=== PATIENT | male | born 1985 | race Caucasian/White ===

== ENCOUNTER 2018-02-13 13:35 | Inpatient (IN) | payer BC ==
[~2018-02-13] VITALS: Ht 195.6 cm; Wt 82.0 kg
[~2018-02-13 13:35] MED LIST: CARI350T29 PO; CLON2TAB12 PO; LIT300 PO; MODA200T35 PO
[2018-02-13 15:30] VITALS: BP 112/58; PULSE 71; RESP 18; Ht 195.6 cm; Wt 82.0 kg
[2018-02-13] MEDS ORDERED: CEPASTAT LOZENGE MT PRN (16:00)
[2018-02-13] MEDS ORDERED: NALOXONE (0.4 MG/ML) INJ IV PRN (16:00)
[2018-02-13] MEDS ORDERED: DIPHENHYDRAMINE 25 MG CAP PO PRN (16:00)
[2018-02-13] MEDS ORDERED: HYDROCODONE/APAP (10/325) TAB PO PRN (16:00)
[2018-02-13] MEDS ORDERED: ONDANSETRON 4 MG INJ IV PRN (16:00)
[2018-02-13] MEDS ORDERED: DIPHENHYDRAMINE 50 MG INJ IV PRN (16:00)
[2018-02-13] MEDS ORDERED: ACETAMINOPHEN 325 MG TAB PO PRN (16:00)
[2018-02-13] MEDS ORDERED: AL HYDROX/MG HYDROX/SIMETH 30 ML CUP PO PRN (16:00)
[2018-02-13] MEDS: HYDROCODONE/APAP (10/325) TAB PO PRN ×2 (16:40→20:55)
[2018-02-13] MEDS: CYCLOBENZAPRINE 10 MG TAB PO PRN (16:42)
[2018-02-13 20:00] VITALS: BP 115/67; PULSE 72; RESP 16
[2018-02-13] MEDS: LITHIUM CARBONATE 300 MG CAP PO SCH (20:54)
[2018-02-13] MEDS: SENNA TAB PO SCH (20:55)
[2018-02-13] MEDS: DOCUSATE SODIUM 100 MG CAP PO SCH (20:55)
[2018-02-13] MEDS: clonAZEPAM 0.5 MG TAB PO PRN (22:06)
[2018-02-14] MEDS: CYCLOBENZAPRINE 10 MG TAB PO PRN ×3 (01:44→16:31)
[2018-02-14 02:00] VITALS: BP 113/63; PULSE 76; RESP 16
[2018-02-14] MEDS: HYDROCODONE/APAP (10/325) TAB PO PRN (07:42)
[2018-02-14 08:00] VITALS: BP 104/58; PULSE 69; RESP 16
[2018-02-14] MEDS: LITHIUM CARBONATE 300 MG CAP PO SCH ×3 (09:31→20:34)
[2018-02-14] MEDS: DOCUSATE SODIUM 100 MG CAP PO SCH ×2 (09:31→21:00)
[2018-02-14] MEDS: MODAFINIL 200 MG TAB PO SCH (09:31)
--- NOTE | 2018-02-14 10:49 | CONS ---
Date/Time of Note Date/Time of Note DATE: 02/14/18 TIME: 10:48 Assessment/Plan Assessment/Plan Assessment/Plan 1. Stable post op lumbar back surg 2. Psych disorder, meds rev and [place] level noted, would not make changes now but on dc will advise pt regarding [place] level so he can rev with his psychiatrist or IM MD Result Diagram: 02/14/18 0706 02/14/18 0706 Results 24hrs Laboratory Tests Test 02/13/18 16:10 02/14/18 07:03 02/14/18 07:06 Urine Color STRAW Urine Clarity CLEAR Urine pH 8.0 Urine Specific [place] 1.003 Urine Ketones NEGATIVE Urine Nitrite NEGATIVE Urine Bilirubin NEGATIVE Urine Urobilinogen NEGATIVE Urine Leukocyte Esterase NEGATIVE Urine Hemoglobin NEGATIVE Urine Glucose NEGATIVE Urine Total Protein NEGATIVE [place] Level 1.5 H White Blood Count 11.4 H Red Blood Count 3.95 L Hemoglobin 11.7 L Hematocrit 35.6 L Mean Corpuscular Volume 90.1 Mean Corpuscular Hemoglobin 29.6 Mean Corpuscular Hemoglobin Concent 32.9 Red Cell Distribution Width 11.8 Platelet Count 136 L Mean Platelet Volume 10.3 Immature Granulocytes % 0.300 Neutrophils % 80.0 H Lymphocytes % 12.2 L Monocytes % 6.2 Eosinophils % 1.0 Basophils % 0.3 Nucleated Red Blood Cells % 0.0 Immature Granulocytes # 0.040 H Neutrophils # 9.2 H Lymphocytes # 1.4 Monocytes # 0.7 Eosinophils # 0.1 Basophils # 0.0 Nucleated Red Blood Cells # 0.0 Sodium Level 136 Potassium Level 4.0 Chloride Level 102 Carbon Dioxide Level 28 Anion Gap 6 Blood Urea Nitrogen 9 Creatinine 0.92 Est Glomerular Filtrat Rate mL/min > 60 Glucose Level 91 Calcium Level 9.9 Total Bilirubin 0.6 Direct Bilirubin 0.00 Indirect Bilirubin 0.6 Aspartate Amino Transf (AST/SGOT) 25 Alanine Aminotransferase (ALT/SGPT) 26 Alkaline Phosphatase 84 Total Protein 6.9 Albumin 3.9 Globulin 3.00 Albumin/Globulin Ratio 1.30 Consultation Date/Type/Reason Admit Date/Time Feb 13, 2018 at 15:27 Initial Consult Date Detailed Summary Respiratory: No cough, No shortness of breath Cardiovascular: No chest pain Gastrointestinal: No pain Genitourinary: no complaints Musculoskeletal: back pain (moderate) Exam/Review of Systems Vital Signs Vitals Vital Signs Date Temp Pulse Resp B/P (MAP) Pulse Ox O2 O2 Flow FiO2 Time Delivery Rate 02/14/18 97.2 69 16 104/58 98 Room Air 08:00 (73) Intake and Output 02/13/18 02/13/18 02/14/18 1515:00 23:00 07:00 IntakeIntake Total 360 ml 750 ml OutputOutput Total 650 ml 1200 ml BalanceBalance -290 ml -450 ml Exam Neck: No jvd Respiratory: clear to auscultation Cardiovascular: regular rate and rhythm Gastrointestinal: soft Extremities: No edema, No tenderness Medications Medications Current Medications Diphenhydramine HCl (Benadryl) 25 mg Q6H PRN IV ITCHING; Start 02/13/18 at 16:00 Docusate Sodium (Colace) 100 mg BID PO Last administered on 02/14/18at 09:31; Admin Dose 100 MG; Start 02/13/18 at 21:00 [place] Carbonate ([place] Carbonate) 900 mg BID PO Last administered on 02/14/18at 10:37; Admin Dose 900 MG; Start 02/13/18 at 21:00 Naloxone HCl (Narcan) 0.2 mg Q2M PRN IV OPIATE OVERDOSE; Start 02/13/18 at 16:00 Ondansetron HCl (Zofran Inj) 4 mg Q6H PRN IV NAUSEA AND/OR VOMITING; Start 02/13/18 at 16:00 Phenol (Cepastat Lozenge) 1 lozenge Q2H PRN [place] SORE THROAT; Start 02/13/18 at 16:00 Acetaminophen (Tylenol Tab) 650 mg Q4H PRN PO MILD PAIN(1-3)OR ELEVATED TEMP; Start 02/13/18 at 16:00 Al Hydrox/Mg Hydrox/Simethicone (Mag-Al Plus) 15 ml Q6H PRN PO GASTROINTESTINAL UPSET; Start 02/13/18 at 16:00 Bisacodyl (Dulcolax Supp) 10 mg DAILY PRN [place] CONSTIPATION; Start 02/13/18 at 16:00 Cyclobenzaprine HCl (Flexeril) 10 mg TID PRN PO MUSCLE SPASMS Last administered on 02/14/18at 07:42; Admin Dose 10 MG; Start 02/13/18 at 16:00 Diphenhydramine HCl (Benadryl) 25 mg Q6H PRN PO ITCHING; Start 02/13/18 at 16:00 Modafinil (Provigil) 200 mg DAILY PO Last administered on 02/14/18at 09:31; Admin Dose 200 MG; Start 02/14/18 at 09:00 Senna (Senokot) 1 tab HS PO Last administered on 02/13/18at 20:55; Admin Dose 1 TAB; Start 02/13/18 at 21:00 Magnesium Hydroxide (Milk Of Mag) 30 ml BID PRN PO CONSTIPATION; Start 02/13/18 at 19:00 Lactulose (Enulose) 20 gm DAILY PRN PO CONSTIPATION; Start 02/13/18 at 19:00 Clonazepam (Klonopin) 2 mg HS PRN PO AGITATION/ANXIETY Last administered on 02/13/18at 22:06; Admin Dose 2 MG; Start 02/13/18 at 21:13 Oxycodone/ Acetaminophen (Endocet (10/ 325)) 1 tab Q4H PRN PO MODERATE PAIN LEVEL 4-6; Start 02/14/18 at 11:00 Oxycodone/ Acetaminophen (Endocet (10/ 325)) 2 tab Q4H PRN PO SEVERE PAIN LEVEL 7-10; Start 02/14/18 at 11:00 BRISSA CAHNCE MD Feb 14, 2018 10:49
--- NOTE | 2018-02-14 12:53 | CONS ---
DATE OF ADMISSION: 02/13/2018 DATE OF CONSULTATION: 02/14/2018 REHABILITATION POST ADMISSION PHYSICIAN EVALUATION REHABILITATION IMPAIRMENT CATEGORY: Right lumbar radiculopathy and history of diskectomy now status post lumbar fusion on 02/11/2018. ACTIVE COMORBIDITIES: 1. Acute pain syndrome. 2. Bipolar disorder. 3. Constipation. 4. Impairments in self-care and mobility. HISTORY OF PRESENT ILLNESS: The patient is a 32-year-old gentleman with a history of bipolar disorde r, low back pain with history of diskectomy who had been noting severe increasing radiating pain desp ite conservative measures which included epidural injections. The patient was admitted and underwent lumbar fusion on 02/11/2018. The patient's hospital course has been notable for acute pain syndrome , constipation, and significant impairments in self-care and mobility as compared to baseline. The p atient has been cleared to transfer to the rehabilitation unit for comprehensive interdisciplinary re hab care. FUNCTIONAL HISTORY: Prior to recent events, he was independent in self-care tasks and mobility. Cur rently, he requires moderate to maximal assist for self-care and mobility tasks. I have reviewed the preadmission screen and the patient's current functional status is consistent wit h the preadmission screen. FAMILY AND SOCIAL HISTORY: The patient lives at home alone. He hopes to return there upon discharge . PAST MEDICAL HISTORY: 1. Bipolar disorder. 2. Lumbar spinal stenosis with history of diskectomy. 3. History of multiple foot surgeries for bunions. 4. History of left knee surgery. CURRENT MEDICATIONS: 1. [place] p.r.n. 2. Klonopin 2 mg p.o. at bedtime p.r.n. 3. Flexeril 10 mg p.o. t.i.d. p.r.n. 4. Colace 100 mg b.i.d. 5. [place] 900 mg p.o. b.i.d. ALLERGIES: THE PATIENT WITH NO KNOWN DRUG ALLERGIES. PHYSICAL EXAMINATION: VITAL SIGNS: The patient is currently afebrile with stable vital signs. HEENT: Extraocular motions intact. LUNGS: Clear anteriorly. CARDIAC: S1, S2. ABDOMEN: Soft, nontender, positive bowel sounds. NEUROLOGIC: He is awake and alert. He is oriented x3. He will follow simple 1-step commands. He c an demonstrate antigravity strength in bilateral upper extremity and lower extremity. He does have i mpaired dynamic balance. PLAN: The patient has been admitted for comprehensive interdisciplinary acute rehab and is anticipat ed to tolerate 3 hours of daily therapy in divided doses for at least 5/7 days a week. The treatment plan will include: 1. Physical therapy to focus on bed mobility, transfers, and household ambulation with the goal of h aving the patient reach a supervised to modified independent level. 2. Occupational therapy to focus on hygiene, grooming, dressing, bathing, and toileting activities w ith the goal of having patient reach a supervised to modified independent level. 3. Rehabilitation nursing for carryover of therapeutic interventions, the goal of continent of bowel and bladder, and the goal of pain adequately managed on oral medications. REHABILITATION BARRIER: Pain. INTERVENTION FOR BARRIER: Interdisciplinary approach. ESTIMATED LENGTH OF STAY: 7 days. DISPOSITION GOAL: Home. I acknowledge that I performed a full physical examination on this patient within 24 hours of admissi on to the rehabilitation unit. I believe the patient is a good candidate for comprehensive interdisc iplinary rehab care and is anticipated to make reasonable goals in a reasonable period of time as out lined above. Dictated By: MALACHI MEZA MD LY/NTS Conf#: [id number] DID#: [id number] CC: CAMPBELL CHI MD;*EndCC*
[2018-02-14] MEDS: OXYCODONE/ACETAMINOPHEN (10/325) TAB PO PRN ×3 (12:55→20:34)
[2018-02-14 14:00] VITALS: BP 108/62; PULSE 72; RESP 18
[2018-02-14 20:00] VITALS: BP 105/56; PULSE 76; RESP 16
[2018-02-14] MEDS: clonAZEPAM 0.5 MG TAB PO PRN (20:38)
[2018-02-14] MEDS: SENNA TAB PO SCH (21:00)
[2018-02-15 02:00] VITALS: BP 101/62; PULSE 72; RESP 16
[2018-02-15] MEDS: OXYCODONE/ACETAMINOPHEN (10/325) TAB PO PRN ×3 (06:26→18:28)
[2018-02-15] MEDS: CYCLOBENZAPRINE 10 MG TAB PO PRN ×3 (06:26→18:27)
[2018-02-15 08:00] VITALS: BP 97/52; PULSE 68; RESP 18
[2018-02-15] MEDS: DOCUSATE SODIUM 100 MG CAP PO SCH ×2 (09:05→20:13)
[2018-02-15] MEDS: LITHIUM CARBONATE 300 MG CAP PO SCH ×2 (09:06→20:12)
[2018-02-15] MEDS: MODAFINIL 200 MG TAB PO SCH (09:08)
--- NOTE | 2018-02-15 12:20 | CONS ---
Date/Time of Note Date/Time of Note DATE: 02/15/18 TIME: 12:19 Assessment/Plan Assessment/Plan Assessment/Plan 1. Stable post op lumbar spine surgery 2. Psych disorder, stable 3. Cont ot and pt Result Diagram: 02/14/18 0706 02/14/18 0706 Consultation Date/Type/Reason Admit Date/Time Feb 13, 2018 at 15:27 Initial Consult Date Detailed Summary Respiratory: No cough, No shortness of breath Cardiovascular: no complaints Gastrointestinal: no complaints Musculoskeletal: back pain (is less) Exam/Review of Systems Vital Signs Vitals Vital Signs Date Temp Pulse Resp B/P (MAP) Pulse Ox O2 O2 Flow FiO2 Time Delivery Rate 02/15/18 99.0 68 18 97/52 (67) 98 Room Air 08:00 Intake and Output 02/14/18 02/14/18 02/15/18 1414:59 22:59 06:59 IntakeIntake Total 610 ml 300 ml OutputOutput Total 930 ml 1300 ml 500 ml BalanceBalance -320 ml -1000 ml -500 ml Exam Neck: No jvd Respiratory: clear to auscultation Cardiovascular: regular rate and rhythm Gastrointestinal: soft Extremities: No edema, No tenderness Medications Medications Current Medications Diphenhydramine HCl (Benadryl) 25 mg Q6H PRN IV ITCHING; Start 02/13/18 at 16:00 Docusate Sodium (Colace) 100 mg BID PO Last administered on 02/15/18at 09:05; Admin Dose 100 MG; Start 02/13/18 at 21:00 [place] Carbonate ([place] Carbonate) 900 mg BID PO Last administered on 02/15/18at 09:06; Admin Dose 900 MG; Start 02/13/18 at 21:00 Naloxone HCl (Narcan) 0.2 mg Q2M PRN IV OPIATE OVERDOSE; Start 02/13/18 at 16:00 Ondansetron HCl (Zofran Inj) 4 mg Q6H PRN IV NAUSEA AND/OR VOMITING; Start 02/13/18 at 16:00 Phenol (Cepastat Lozenge) 1 lozenge Q2H PRN [place] SORE THROAT; Start 02/13/18 at 16:00 Acetaminophen (Tylenol Tab) 650 mg Q4H PRN PO MILD PAIN(1-3)OR ELEVATED TEMP; Start 02/13/18 at 16:00 Al Hydrox/Mg Hydrox/Simethicone (Mag-Al Plus) 15 ml Q6H PRN PO GASTROINTESTINAL UPSET; Start 02/13/18 at 16:00 Bisacodyl (Dulcolax Supp) 10 mg DAILY PRN [place] CONSTIPATION; Start 02/13/18 at 16:00 Cyclobenzaprine HCl (Flexeril) 10 mg TID PRN PO MUSCLE SPASMS Last administered on 02/15/18at 10:48; Admin Dose 10 MG; Start 02/13/18 at 16:00 Diphenhydramine HCl (Benadryl) 25 mg Q6H PRN PO ITCHING; Start 02/13/18 at 16:00 Modafinil (Provigil) 200 mg DAILY PO Last administered on 02/15/18 09:08; Admin Dose 200 MG; Start 02/14/18 at 09:00 Senna (Senokot) 1 tab HS PO Last administered on 02/13/18at 20:55; Admin Dose 1 TAB; Start 02/13/18 at 21:00 Magnesium Hydroxide (Milk Of Mag) 30 ml BID PRN PO CONSTIPATION; Start 02/13/18 at 19:00 Lactulose (Enulose) 20 gm DAILY PRN PO CONSTIPATION; Start 02/13/18 at 19:00 Clonazepam (Klonopin) 2 mg HS PRN PO AGITATION/ANXIETY Last administered on 02/14/18at 20:38; Admin Dose 2 MG; Start 02/13/18 at 21:13 Oxycodone/ Acetaminophen (Endocet (10/ 325)) 1 tab Q4H PRN PO MODERATE PAIN LEVEL 4-6; Start 02/14/18 at 11:00 Oxycodone/ Acetaminophen (Endocet (10/ 325)) 2 tab Q4H PRN PO SEVERE PAIN LEVEL 7-10 Last administered on 02/15/18at 10:48; Admin Dose 2 TAB; Start 02/14/18 at 11:00 BRISSA CHANCE MD Feb 15, 2018 12:20
[2018-02-15 20:00] VITALS: BP 116/74; PULSE 97; RESP 16
[2018-02-15] MEDS: clonAZEPAM 0.5 MG TAB PO PRN (20:12)
[2018-02-15] MEDS: SENNA TAB PO SCH (20:12)
[2018-02-16 02:00] VITALS: BP 108/63; PULSE 74; RESP 16
[2018-02-16] MEDS: MAGNESIUM HYDROXIDE 30ML CUP PO PRN (06:45)
[2018-02-16] MEDS: OXYCODONE/ACETAMINOPHEN (10/325) TAB PO PRN ×3 (07:50→20:50)
[2018-02-16] MEDS: CYCLOBENZAPRINE 10 MG TAB PO PRN ×3 (07:50→20:50)
[2018-02-16 08:00] VITALS: BP 109/62; PULSE 88; RESP 16
[2018-02-16] MEDS: LITHIUM CARBONATE 300 MG CAP PO SCH ×2 (08:07→20:49)
[2018-02-16] MEDS: MODAFINIL 200 MG TAB PO SCH (08:08)
[2018-02-16] MEDS: DOCUSATE SODIUM 100 MG CAP PO SCH ×2 (08:08→21:00)
--- NOTE | 2018-02-16 08:55 | CONS ---
Date/Time of Note Date/Time of Note DATE: 02/16/18 TIME: 08:52 Assessment/Plan Assessment/Plan Assessment/Plan 1. Doing well post lumbar back surgery 2. Mild paranoia and agitation, Psych to see, rev with staff Result Diagram: 02/16/18 0639 02/16/18 0639 Results 24hrs Laboratory Tests Test 02/16/18 06:39 White Blood Count 6.6 # Red Blood Count 3.95 L Hemoglobin 11.5 L Hematocrit 34.6 L Mean Corpuscular Volume 87.6 Mean Corpuscular Hemoglobin 29.1 Mean Corpuscular Hemoglobin Concent 33.2 Red Cell Distribution Width 11.4 L Platelet Count 206 # Mean Platelet Volume 10.5 H Immature Granulocytes % 0.300 Neutrophils % 67.0 Lymphocytes % 21.9 Monocytes % 7.7 Eosinophils % 2.9 Basophils % 0.2 Nucleated Red Blood Cells % 0.0 Immature Granulocytes # 0.020 Neutrophils # 4.4 Lymphocytes # 1.5 Monocytes # 0.5 Eosinophils # 0.2 Basophils # 0.0 Nucleated Red Blood Cells # 0.0 Sodium Level 141 Potassium Level 4.0 Chloride Level 99 Carbon Dioxide Level 30 Anion Gap 12 Blood Urea Nitrogen 11 Creatinine 0.87 Est Glomerular Filtrat Rate mL/min > 60 Glucose Level 86 Calcium Level 10.2 Consultation Date/Type/Reason Admit Date/Time Feb 13, 2018 at 15:27 Initial Consult Date Detailed Summary Respiratory: No cough, No shortness of breath Cardiovascular: No chest pain, No orthopenea Gastrointestinal: no complaints Genitourinary: no complaints Musculoskeletal: back pain (moderate), bone/joint pain Psychological: other (anxious, ? paranoia "people in his room that were loud, not getting care and "food" he needs") Exam/Review of Systems Vital Signs Vitals Vital Signs Date Temp Pulse Resp B/P (MAP) Pulse Ox O2 O2 Flow FiO2 Time Delivery Rate 02/16/18 98.5 74 16 108/63 96 Room Air 02:00 (78) Intake and Output 02/15/18 02/15/18 02/16/18 1515:00 23:00 07:00 IntakeIntake Total 800 ml OutputOutput Total 1600 ml 750 ml BalanceBalance -800 ml -750 ml Exam Neck: No jvd Respiratory: clear to auscultation Cardiovascular: regular rate and rhythm Gastrointestinal: soft Extremities: No edema Neurological: No focal weakness (welll oriented to recent events and place) Medications Medications Current Medications Diphenhydramine HCl (Benadryl) 25 mg Q6H PRN IV ITCHING; Start 02/13/18 at 16:00 Docusate Sodium (Colace) 100 mg BID PO Last administered on 02/16/18at 08:08; Admin Dose 100 MG; Start 02/13/18 at 21:00 [place] Carbonate ([place] Carbonate) 900 mg BID PO Last administered on 02/16/18at 08:07; Admin Dose 900 MG; Start 02/13/18 at 21:00 Naloxone HCl (Narcan) 0.2 mg Q2M PRN IV OPIATE OVERDOSE; Start 02/13/18 at 16:00 Ondansetron HCl (Zofran Inj) 4 mg Q6H PRN IV NAUSEA AND/OR VOMITING; Start 02/13/18 at 16:00 Phenol (Cepastat Lozenge) 1 lozenge Q2H PRN [place] SORE THROAT; Start 02/13/18 at 16:00 Acetaminophen (Tylenol Tab) 650 mg Q4H PRN PO MILD PAIN(1-3)OR ELEVATED TEMP; Start 02/13/18 at 16:00 Al Hydrox/Mg Hydrox/Simethicone (Mag-Al Plus) 15 ml Q6H PRN PO GASTROINTESTINAL UPSET; Start 02/13/18 at 16:00 Bisacodyl (Dulcolax Supp) 10 mg DAILY PRN [place] CONSTIPATION; Start 02/13/18 at 16:00 Cyclobenzaprine HCl (Flexeril) 10 mg TID PRN PO MUSCLE SPASMS Last administered on 02/16/18at 07:50; Admin Dose 10 MG; Start 02/13/18 at 16:00 Diphenhydramine HCl (Benadryl) 25 mg Q6H PRN PO ITCHING; Start 02/13/18 at 16:00 Modafinil (Provigil) 200 mg DAILY PO Last administered on 02/16/18at 08:08; Admin Dose 200 MG; Start 02/14/18 at 09:00 Senna (Senokot) 1 tab HS PO Last administered on 02/15/18at 20:12; Admin Dose 1 TAB; Start 02/13/18 at 21:00 Magnesium Hydroxide (Milk Of Mag) 30 ml BID PRN PO CONSTIPATION Last administered on 02/16/18at 06:45; Admin Dose 30 ML; Start 02/13/18 at 19:00 Lactulose (Enulose) 20 gm DAILY PRN PO CONSTIPATION; Start 02/13/18 at 19:00 Clonazepam (Klonopin) 2 mg HS PRN PO AGITATION/ANXIETY Last administered on 02/15/18at 20:12; Admin Dose 2 MG; Start 02/13/18 at 21:13 Oxycodone/ Acetaminophen (Endocet (10/ 325)) 1 tab Q4H PRN PO MODERATE PAIN LEVEL 4-6 Last administered on 02/16/18at 07:50; Admin Dose 1 TAB; Start 02/14/18 at 11:00 Oxycodone/ Acetaminophen (Endocet (10/ 325)) 2 tab Q4H PRN PO SEVERE PAIN LEVEL 7-10 Last administered on 02/15/18at 18:28; Admin Dose 2 TAB; Start 02/14/18 at 11:00 BRISSA CHANCE MD Feb 16, 2018 08:55
--- NOTE | 2018-02-16 11:58 | PN ---
Date/Time of Note Date/Time of Note DATE: 02/16/18 TIME: 11:56 Objective Vital Signs Date Temp Pulse Resp B/P (MAP) Pulse Ox O2 O2 Flow FiO2 Time Delivery Rate 02/16/18 97.8 88 16 109/62 99 Room Air 08:00 (78) Intake and Output 02/15/18 02/15/18 02/16/18 1515:00 23:00 07:00 IntakeIntake Total 800 ml OutputOutput Total 1600 ml 750 ml BalanceBalance -800 ml -750 ml Exam INTERDISCIPLINARY TEAM CONFERENCE Patient reports pain under adequate control with current meds. EXAM PULM-cta ABD-soft, bs BOWEL- Cont BLADDER-Cont SKIN- incision c/d/i OT- DRESSING-min BATHING-min TOILETING-min PT- BED MOBILITY-cga TRANSFERS-cga AMBULATION-cga 75 feet x 2 A/P- Interdisciplinary team conference held today. Please see interdisciplinary sheet. Working toward d.c. on 02/24 with post discharge follow up of physical therapy, occupational therapy. SW working on dc planning. Patient with some paranoid/delusional thoughts per nursing. Will ask for psychiatric evaluation. Results/Medications Result Diagram: 02/16/18 0639 02/16/18 0639 Results 24 hrs Laboratory Tests Test 02/16/18 06:39 White Blood Count 6.6 # Red Blood Count 3.95 L Hemoglobin 11.5 L Hematocrit 34.6 L Mean Corpuscular Volume 87.6 Mean Corpuscular Hemoglobin 29.1 Mean Corpuscular Hemoglobin Concent 33.2 Red Cell Distribution Width 11.4 L Platelet Count 206 # Mean Platelet Volume 10.5 H Immature Granulocytes % 0.300 Neutrophils % 67.0 Lymphocytes % 21.9 Monocytes % 7.7 Eosinophils % 2.9 Basophils % 0.2 Nucleated Red Blood Cells % 0.0 Immature Granulocytes # 0.020 Neutrophils # 4.4 Lymphocytes # 1.5 Monocytes # 0.5 Eosinophils # 0.2 Basophils # 0.0 Nucleated Red Blood Cells # 0.0 Sodium Level 141 Potassium Level 4.0 Chloride Level 99 Carbon Dioxide Level 30 Anion Gap 12 Blood Urea Nitrogen 11 Creatinine 0.87 Est Glomerular Filtrat Rate mL/min > 60 Glucose Level 86 Calcium Level 10.2 Medications Current Medications Diphenhydramine HCl (Benadryl) 25 mg Q6H PRN IV ITCHING; Start 02/13/18 at 16:00 Docusate Sodium (Colace) 100 mg BID PO Last administered on 02/16/18at 08:08; Admin Dose 100 MG; Start 02/13/18 at 21:00 [place] Carbonate ([place] Carbonate) 900 mg BID PO Last administered on 02/16/18at 08:07; Admin Dose 900 MG; Start 02/13/18 at 21:00 Naloxone HCl (Narcan) 0.2 mg Q2M PRN IV OPIATE OVERDOSE; Start 02/13/18 at 16:00 Ondansetron HCl (Zofran Inj) 4 mg Q6H PRN IV NAUSEA AND/OR VOMITING; Start 02/13/18 at 16:00 Phenol (Cepastat Lozenge) 1 lozenge Q2H PRN [place] SORE THROAT; Start 02/13/18 at 16:00 Acetaminophen (Tylenol Tab) 650 mg Q4H PRN PO MILD PAIN(1-3)OR ELEVATED TEMP; Start 02/13/18 at 16:00 Al Hydrox/Mg Hydrox/Simethicone (Mag-Al Plus) 15 ml Q6H PRN PO GASTROINTESTINAL UPSET; Start 02/13/18 at 16:00 Bisacodyl (Dulcolax Supp) 10 mg DAILY PRN [place] CONSTIPATION; Start 02/13/18 at 16:00 Cyclobenzaprine HCl (Flexeril) 10 mg TID PRN PO MUSCLE SPASMS Last administered on 02/16/18at 11:37; Admin Dose 10 MG; Start 02/13/18 at 16:00 Diphenhydramine HCl (Benadryl) 25 mg Q6H PRN PO ITCHING; Start 02/13/18 at 16:00 Modafinil (Provigil) 200 mg DAILY PO Last administered on 02/16/18at 08:08; Admin Dose 200 MG; Start 02/14/18 at 09:00 Senna (Senokot) 1 tab HS PO Last administered on 02/15/18at 20:12; Admin Dose 1 TAB; Start 02/13/18 at 21:00 Magnesium Hydroxide (Milk Of Mag) 30 ml BID PRN PO CONSTIPATION Last administered on 02/16/18at 06:45; Admin Dose 30 ML; Start 02/13/18 at 19:00 Lactulose (Enulose) 20 gm DAILY PRN PO CONSTIPATION; Start 02/13/18 at 19:00 Clonazepam (Klonopin) 2 mg HS PRN PO AGITATION/ANXIETY Last administered on 02/15/18at 20:12; Admin Dose 2 MG; Start 02/13/18 at 21:13 Oxycodone/ Acetaminophen (Endocet (10/ 325)) 1 tab Q4H PRN PO MODERATE PAIN LEVEL 4-6 Last administered on 02/16/18at 07:50; Admin Dose 1 TAB; Start 02/14/18 at 11:00 Oxycodone/ Acetaminophen (Endocet (10/ 325)) 2 tab Q4H PRN PO SEVERE PAIN LEVEL 7-10 Last administered on 02/16/18at 11:38; Admin Dose 2 TAB; Start 02/14/18 at 11:00 MALACHI MEZA MD Feb 16, 2018 11:58
[2018-02-16] MEDS: LACTULOSE 30ML CUP PO PRN (13:11)
[2018-02-16 14:00] VITALS: BP 112/65; PULSE 74; RESP 18
[2018-02-16 20:00] VITALS: BP 107/69; PULSE 80; RESP 17
[2018-02-16] MEDS: clonAZEPAM 0.5 MG TAB PO PRN (20:49)
[2018-02-16] MEDS: SENNA TAB PO SCH (21:00)
[2018-02-17] MEDS: OXYCODONE/ACETAMINOPHEN (10/325) TAB PO PRN ×4 (04:59→21:14)
[2018-02-17 08:00] VITALS: BP 99/64; PULSE 69; RESP 18
[2018-02-17] MEDS: MAGNESIUM HYDROXIDE 30ML CUP PO PRN (08:13)
[2018-02-17] MEDS: MODAFINIL 200 MG TAB PO SCH (08:14)
[2018-02-17] MEDS: LITHIUM CARBONATE 300 MG CAP PO SCH (08:14)
[2018-02-17] MEDS: DOCUSATE SODIUM 100 MG CAP PO SCH ×2 (08:14→21:14)
--- NOTE | 2018-02-17 09:00 | CONS ---
Date/Time of Note Date/Time of Note DATE: 02/17/18 TIME: 08:58 Assessment/Plan Assessment/Plan Result Diagram: 02/16/18 0639 02/16/18 0639 Results 24hrs 1. Post op lumbar back surgery, doing well 2. Psych disorder, stable (improved from yesterday) Consultation Date/Type/Reason Admit Date/Time Feb 13, 2018 at 15:27 Initial Consult Date Detailed Summary Respiratory: No cough, No shortness of breath Cardiovascular: No chest pain Gastrointestinal: no complaints Genitourinary: no complaints Musculoskeletal: back pain (is less) Psychological: other (Mood is better today, less paranoid) Exam/Review of Systems Vital Signs Vitals Vital Signs Date Temp Pulse Resp B/P (MAP) Pulse Ox O2 O2 Flow FiO2 Time Delivery Rate 02/17/18 97.5 69 18 99/64 (76) 98 Room Air 08:00 Intake and Output 02/16/18 02/16/18 02/17/18 1515:00 23:00 07:00 IntakeIntake Total 200 ml 3200 ml 200 ml OutputOutput Total 750 ml BalanceBalance -550 ml 3200 ml 200 ml Exam Neck: No jvd Respiratory: clear to auscultation Cardiovascular: regular rate and rhythm Gastrointestinal: soft Extremities: No edema Neurological: other (oriented well to recent events) Medications Medications Current Medications Diphenhydramine HCl (Benadryl) 25 mg Q6H PRN IV ITCHING; Start 02/13/18 at 16:00 Docusate Sodium (Colace) 100 mg BID PO Last administered on 02/17/18at 08:14; Admin Dose 100 MG; Start 02/13/18 at 21:00 [place] Carbonate ([place] Carbonate) 900 mg BID PO Last administered on 02/17/18at 08:14; Admin Dose 900 MG; Start 02/13/18 at 21:00 Naloxone HCl (Narcan) 0.2 mg Q2M PRN IV OPIATE OVERDOSE; Start 02/13/18 at 16:00 Ondansetron HCl (Zofran Inj) 4 mg Q6H PRN IV NAUSEA AND/OR VOMITING; Start 02/13/18 at 16:00 Phenol (Cepastat Lozenge) 1 lozenge Q2H PRN [place] SORE THROAT; Start 02/13/18 at 16:00 Acetaminophen (Tylenol Tab) 650 mg Q4H PRN PO MILD PAIN(1-3)OR ELEVATED TEMP; Start 02/13/18 at 16:00 Al Hydrox/Mg Hydrox/Simethicone (Mag-Al Plus) 15 ml Q6H PRN PO GASTROINTESTINAL UPSET; Start 02/13/18 at 16:00 Bisacodyl (Dulcolax Supp) 10 mg DAILY PRN [place] CONSTIPATION; Start 02/13/18 at 16:00 Cyclobenzaprine HCl (Flexeril) 10 mg TID PRN PO MUSCLE SPASMS Last administered on 02/16/18 20:50; Admin Dose 10 MG; Start 02/13/18 at 16:00 Diphenhydramine HCl (Benadryl) 25 mg Q6H PRN PO ITCHING; Start 02/13/18 at 16:00 Modafinil (Provigil) 200 mg DAILY PO Last administered on 02/17/18 08:14; Admin Dose 200 MG; Start 02/14/18 at 09:00 Senna (Senokot) 1 tab HS PO Last administered on 02/15/18 20:12; Admin Dose 1 TAB; Start 02/13/18 at 21:00 Magnesium Hydroxide (Milk Of Mag) 30 ml BID PRN PO CONSTIPATION Last administered on 02/17/18 08:13; Admin Dose 30 ML; Start 02/13/18 at 19:00 Lactulose (Enulose) 20 gm DAILY PRN PO CONSTIPATION Last administered on 02/16/18 13:11; Admin Dose 20 [place]; Start 02/13/18 at 19:00 Clonazepam (Klonopin) 2 mg HS PRN PO AGITATION/ANXIETY Last administered on 02/16/18 20:49; Admin Dose 2 MG; Start 02/13/18 at 21:13 Oxycodone/ Acetaminophen (Endocet (10/ 325)) 1 tab Q4H PRN PO MODERATE PAIN LEVEL 4-6 Last administered on 02/16/18 07:50; Admin Dose 1 TAB; Start 02/14/18 at 11:00 Oxycodone/ Acetaminophen (Endocet (10/ 325)) 2 tab Q4H PRN PO SEVERE PAIN LEVEL 7-10 Last administered on 02/17/18 04:59; Admin Dose 2 TAB; Start 02/14/18 at 11:00 BRISSA CHANCE MD Feb 17, 2018 09:00
--- NOTE | 2018-02-17 10:52 | PN ---
Date/Time of Note Date/Time of Note DATE: 02/17/18 TIME: 10:50 Subjective Patient reports pain under control Objective Vital Signs Date Temp Pulse Resp B/P (MAP) Pulse Ox O2 O2 Flow FiO2 Time Delivery Rate 02/17/18 97.5 69 18 99/64 (76) 98 Room Air 08:00 Intake and Output 02/16/18 02/16/18 02/17/18 1515:00 23:00 07:00 IntakeIntake Total 200 ml 3200 ml 200 ml OutputOutput Total 750 ml BalanceBalance -550 ml 3200 ml 200 ml Exam pulm-cta abd-soft sba ambulation Results/Medications Result Diagram: 02/16/1839 02/16/18638 Medications Current Medications Diphenhydramine HCl (Benadryl) 25 mg Q6H PRN IV ITCHING; Start 02/13/18 at 16:00 Docusate Sodium (Colace) 100 mg BID PO Last administered on 02/17/18at 08:14; Admin Dose 100 MG; Start 02/13/18 at 21:00 [place] Carbonate ([place] Carbonate) 900 mg BID PO Last administered on 02/17/18at 08:14; Admin Dose 900 MG; Start 02/13/18 at 21:00 Naloxone HCl (Narcan) 0.2 mg Q2M PRN IV OPIATE OVERDOSE; Start 02/13/18 at 16:00 Ondansetron HCl (Zofran Inj) 4 mg Q6H PRN IV NAUSEA AND/OR VOMITING; Start 02/13/18 at 16:00 Phenol (Cepastat Lozenge) 1 lozenge Q2H PRN [place] SORE THROAT; Start 02/13/18 at 16:00 Acetaminophen (Tylenol Tab) 650 mg Q4H PRN PO MILD PAIN(1-3)OR ELEVATED TEMP; Start 02/13/18 at 16:00 Al Hydrox/Mg Hydrox/Simethicone (Mag-Al Plus) 15 ml Q6H PRN PO GASTROINTESTINAL UPSET; Start 02/13/18 at 16:00 Bisacodyl (Dulcolax Supp) 10 mg DAILY PRN [place] CONSTIPATION; Start 02/13/18 at 16:00 Cyclobenzaprine HCl (Flexeril) 10 mg TID PRN PO MUSCLE SPASMS Last administered on 02/16/18at 20:50; Admin Dose 10 MG; Start 02/13/18 at 16:00 Diphenhydramine HCl (Benadryl) 25 mg Q6H PRN PO ITCHING; Start 02/13/18 at 16:00 Modafinil (Provigil) 200 mg DAILY PO Last administered on 02/17/18 08:14; Admin Dose 200 MG; Start 02/14/18 at 09:00 Senna (Senokot) 1 tab HS PO Last administered on 02/15/18 20:12; Admin Dose 1 TAB; Start 02/13/18 at 21:00 Magnesium Hydroxide (Milk Of Mag) 30 ml BID PRN PO CONSTIPATION Last administered on 02/17/18 08:13; Admin Dose 30 ML; Start 02/13/18 at 19:00 Lactulose (Enulose) 20 gm DAILY PRN PO CONSTIPATION Last administered on 02/16/18 13:11; Admin Dose 20 GM; Start 02/13/18 at 19:00 Clonazepam (Klonopin) 2 mg HS PRN PO AGITATION/ANXIETY Last administered on 02/16/18at 20:49; Admin Dose 2 MG; Start 02/13/18 at 21:13 Oxycodone/ Acetaminophen (Endocet (10/ 325)) 1 tab Q4H PRN PO MODERATE PAIN LEVEL 4-6 Last administered on 02/16/18 07:50; Admin Dose 1 TAB; Start 02/14/18 at 11:00 Oxycodone/ Acetaminophen (Endocet (10/ 325)) 2 tab Q4H PRN PO SEVERE PAIN LEVEL 7-10 Last administered on 02/17/18 09:19; Admin Dose 2 TAB; Start 02/14/18 at 11:00 Docosanol (Abreva) 1 applic TID TOP ; Start 02/17/18 at 13:00; Stop 02/22/18 at 12:59; Status UNV Assessment/Plan Additional Assessment/Plan Rehab- Right lumbar radiculopathy and history of diskectomy now status post lumbar fusion on 02/11/2018. Patient has been making steady progress with treatment plan Acute pain syndrome-continue current medications Bipolar disorder-continue current medications Constipation-results with bowel program MALACHI MEZA MD Feb 17, 2018 10:52
[2018-02-17] MEDS: DOCOSANOL 2 GM CREAM TOP SCH ×2 (13:33→21:14)
[2018-02-17 14:00] VITALS: BP 111/66; PULSE 86; RESP 18
[2018-02-17] MEDS: CYCLOBENZAPRINE 10 MG TAB PO PRN ×2 (15:43→21:13)
--- NOTE | 2018-02-17 16:32 | PSY ---
Date/Time of Note Date/Time of Note DATE: 02/17/18 TIME: 16:26 Psychiatric Subjective Eval Consent Pt consented to telemedicine: No Subjective Evaluation Patient location: inpatient History of present illness Patient is a 32-year-old male admitted for low back pain. On a [id number] evaluation, patient states he has been increasingly depressed since his being in this situation and not being able to do things for himself. He reports history of depression and anxiety, reports he was diagnosed with bipolar disorder, however he denies auditory hallucination at the moment states he has intermittent auditory hallucination in the past but has not had one for a while. Patient is currently on Provigil and lithium for his bipolar and he states the medications are helping him Past psychiatric history Long history of mental illness with bipolar disorder Hospitalization: yes Family History Patient has family history of mental illness grandmother was diagnosed with bipolar and a brother has bipolar disorder. Allergies: Coded Allergies: No Known Allergy (Unverified , 02/11/18) Substance Abuse Substance abuse history: Yes (History of alcohol abuse) Prior substance abuse treatmen: Yes (History of marijuana) Social History Marital status: single DPA/Conservatorship: No Psychiatric Objective Eval Review of Systems: Review of Systems: Not Applicable Physical Examination: Physical Examination: Not Applicable Appetite: Adequate Energy: Adequate Interest: Adequate Mental Status Examination: Appearance: Groomed Eye Contact: Fair Psychomotor Activity: Slow Behavior: Cooperative Speech: Clear AFFECT: Blunt, Constricted Mood: Depressed Though Process: Linear On 72 hour hold: Yes Cognition: Alert Insight: Mild Judgement: Mild Attention Span: Distractible Laboratory Results Laboratory Tests Test 02/16/18 06:39 White Blood Count 6.6 10^3/ul Red Blood Count 3.95 10^6/ul Hemoglobin 11.5 g/dl Hematocrit 34.6 % Mean Corpuscular Volume 87.6 fl Mean Corpuscular Hemoglobin 29.1 pg Mean Corpuscular Hemoglobin Concent 33.2 g/dl Red Cell Distribution Width 11.4 % Platelet Count 206 10^3/UL Mean Platelet Volume 10.5 fl Immature Granulocytes % 0.300 % Neutrophils % 67.0 % Lymphocytes % 21.9 % Monocytes % 7.7 % Eosinophils % 2.9 % Basophils % 0.2 % Nucleated Red Blood Cells % 0.0 /100WBC Immature Granulocytes # 0.020 10^3/ul Neutrophils # 4.4 10^3/ul Lymphocytes # 1.5 10^3/ul Monocytes # 0.5 10^3/ul Eosinophils # 0.2 10^3/ul Basophils # 0.0 10^3/ul Nucleated Red Blood Cells # 0.0 10^3/ul Sodium Level 141 mmol/L Potassium Level 4.0 mmol/L Chloride Level 99 mmol/L Carbon Dioxide Level 30 mmol/L Anion Gap 12 Blood Urea Nitrogen 11 mg/dl Creatinine 0.87 mg/dl Est Glomerular Filtrat Rate mL/min > 60 mL/min Glucose Level 86 mg/dl Calcium Level 10.2 mg/dl Assessment and Plan Assessment/Diagnosis Diagnosis Bipolar 1 disorder manic without psychosis Recommendation/Plan Medication Management Continue current medications Multiple antipsychotics: No Discharge Disposition: Other Legal Status: Voluntary (Patient does not meet criteria for 5150 hold) RUBIO TRIVEDI NP Feb 17, 2018 16:32
[2018-02-17 20:00] VITALS: BP 116/73; PULSE 95; RESP 19
[2018-02-17] MEDS: clonAZEPAM 0.5 MG TAB PO PRN (21:13)
[2018-02-17] MEDS: SENNA TAB PO SCH (21:14)
[2018-02-17] MEDS ORDERED: LITHIUM CARBONATE 300 MG CAP PO SCH (21:30)
[2018-02-18] MEDS: OXYCODONE/ACETAMINOPHEN (10/325) TAB PO PRN ×3 (07:59→21:30)
[2018-02-18] MEDS: LACTULOSE 30ML CUP PO PRN (07:59)
[2018-02-18 08:00] VITALS: BP 106/70; PULSE 71; RESP 18
[2018-02-18] MEDS: LITHIUM CARBONATE 300 MG CAP PO SCH (08:30)
[2018-02-18] MEDS: DOCUSATE SODIUM 100 MG CAP PO SCH ×2 (08:30→21:29)
[2018-02-18] MEDS: MODAFINIL 200 MG TAB PO SCH (08:30)
[2018-02-18] MEDS: DOCOSANOL 2 GM CREAM TOP SCH ×3 (08:30→22:20)
[2018-02-18] MEDS ORDERED: LACTULOSE 30ML CUP PO ONE (09:00)
--- NOTE | 2018-02-18 09:04 | CONS ---
Date/Time of Note Date/Time of Note DATE: 02/18/18 TIME: 09:02 Assessment/Plan Assessment/Plan Assessment/Plan 1. Post op lumbar back surgery, doing well 2. Psych disorder, stable, will reduce lithium dose to 1500 mg/d 3. Calcium, sl inc, will repeat Result Diagram: 02/18/18 0608 02/18/18 0608 Results 24hrs Laboratory Tests Test 02/18/18 06:08 White Blood Count 5.8 Red Blood Count 3.81 L Hemoglobin 11.1 L Hematocrit 34.1 L Mean Corpuscular Volume 89.5 Mean Corpuscular Hemoglobin 29.1 Mean Corpuscular Hemoglobin Concent 32.6 Red Cell Distribution Width 11.7 Platelet Count 239 Mean Platelet Volume 9.8 Immature Granulocytes % 0.300 Neutrophils % 51.3 Lymphocytes % 35.4 Monocytes % 7.7 Eosinophils % 5.0 Basophils % 0.3 Nucleated Red Blood Cells % 0.0 Immature Granulocytes # 0.020 Neutrophils # 3.0 Lymphocytes # 2.1 Monocytes # 0.5 Eosinophils # 0.3 Basophils # 0.0 Nucleated Red Blood Cells # 0.0 Sodium Level 142 Potassium Level 4.0 Chloride Level 102 Carbon Dioxide Level 31 Anion Gap 9 Blood Urea Nitrogen 14 Creatinine 0.88 Est Glomerular Filtrat Rate mL/min > 60 Glucose Level 86 Calcium Level 10.5 H Phosphorus Level 4.5 Magnesium Level 2.3 Thyroid Stimulating Hormone (TSH) 3.990 [place] Level 1.2 Consultation Date/Type/Reason Admit Date/Time Feb 13, 2018 at 15:27 Initial Consult Date Detailed Summary Respiratory: No shortness of breath Cardiovascular: No chest pain, No lightheadedness Gastrointestinal: constipation Genitourinary: no complaints Musculoskeletal: back pain (is less) Psychological: other (feeling better, wants to red lithium dose, paranoia has resolved) Exam/Review of Systems Vital Signs Vitals Vital Signs Date Temp Pulse Resp B/P (MAP) Pulse Ox O2 O2 Flow FiO2 Time Delivery Rate 02/18/18 98.7 71 18 106/70 99 Room Air 08:00 (82) Intake and Output 02/17/18 02/17/18 02/18/18 1414:59 22:59 06:59 IntakeIntake Total 1400 ml 200 ml OutputOutput Total 900 ml 500 ml BalanceBalance 500 ml -300 ml Exam Neck: No jvd Respiratory: clear to auscultation Cardiovascular: regular rate and rhythm Gastrointestinal: soft Extremities: No edema, No tenderness Medications Medications Current Medications Diphenhydramine HCl (Benadryl) 25 mg Q6H PRN IV ITCHING; Start 02/13/18 at 16:00 Docusate Sodium (Colace) 100 mg BID PO Last administered on 02/18/18 08:30; Admin Dose 100 MG; Start 02/13/18 at 21:00 Naloxone HCl (Narcan) 0.2 mg Q2M PRN IV OPIATE OVERDOSE; Start 02/13/18 at 16:00 Ondansetron HCl (Zofran Inj) 4 mg Q6H PRN IV NAUSEA AND/OR VOMITING; Start 02/13/18 at 16:00 Phenol (Cepastat Lozenge) 1 lozenge Q2H PRN [place] SORE THROAT; Start 02/13/18 at 16:00 Acetaminophen (Tylenol Tab) 650 mg Q4H PRN PO MILD PAIN(1-3)OR ELEVATED TEMP; Start 02/13/18 at 16:00 Al Hydrox/Mg Hydrox/Simethicone (Mag-Al Plus) 15 ml Q6H PRN PO GASTROINTESTINAL UPSET; Start 02/13/18 at 16:00 Bisacodyl (Dulcolax Supp) 10 mg DAILY PRN [place] CONSTIPATION; Start 02/13/18 at 16:00 Cyclobenzaprine HCl (Flexeril) 10 mg TID PRN PO MUSCLE SPASMS Last administered on 02/17/18at 21:13; Admin Dose 10 MG; Start 02/13/18 at 16:00 Diphenhydramine HCl (Benadryl) 25 mg Q6H PRN PO ITCHING; Start 02/13/18 at 16:00 Modafinil (Provigil) 200 mg DAILY PO Last administered on 02/18/18at 08:30; Admin Dose 200 MG; Start 02/14/18 at 09:00 Senna (Senokot) 1 tab HS PO Last administered on 02/17/18at 21:14; Admin Dose 1 TAB; Start 02/13/18 at 21:00 Magnesium Hydroxide (Milk Of Mag) 30 ml BID PRN PO CONSTIPATION Last administered on 02/17/18at 08:13; Admin Dose 30 ML; Start 02/13/18 at 19:00 Lactulose (Enulose) 20 gm DAILY PRN PO CONSTIPATION Last administered on 02/18/18 at 07:59; Admin Dose 20 GM; Start 02/13/18 at 19:00 Clonazepam (Klonopin) 2 mg HS PRN PO AGITATION/ANXIETY Last administered on 02/17/18at 21:13; Admin Dose 2 MG; Start 02/13/18 at 21:13 Oxycodone/ Acetaminophen (Endocet (10/ 325)) 1 tab Q4H PRN PO MODERATE PAIN LEVEL 4-6 Last administered on 02/18/18at 07:59; Admin Dose 1 TAB; Start 02/14/18 at 11:00 Oxycodone/ Acetaminophen (Endocet (10/ 325)) 2 tab Q4H PRN PO SEVERE PAIN LEVEL 7-10 Last administered on 02/17/18at 21:14; Admin Dose 2 TAB; Start 02/14/18 at 11:00 Docosanol (Abreva) 1 applic TID TOP Last administered on 02/18/18at 08:30; Admin Dose 1 APPLIC; Start 02/17/18 at 13:00; Stop 02/22/18 at 12:59 [place] Carbonate ([place] Carbonate) 600 mg AM PO Last administered on 02/18/18 08:30; Admin Dose 600 MG; Start 02/18/18 at 09:00 [place] Carbonate ([place] Carbonate) 900 mg HS PO ; Start 02/18/18 at 21:00 BRISSA CHANCE MD Feb 18, 2018 09:04
[2018-02-18] MEDS: BISACODYL 10 MG SUPP PR PRN (09:59)
--- NOTE | 2018-02-18 11:18 | PN ---
Date/Time of Note Date/Time of Note DATE: 02/18/18 TIME: 11:16 Subjective Currently comfortable, pain under good control Objective Vital Signs Date Temp Pulse Resp B/P (MAP) Pulse Ox O2 O2 Flow FiO2 Time Delivery Rate 02/18/18 98.7 71 18 106/70 99 Room Air 08:00 (82) Intake and Output 02/17/18 02/17/18 02/18/18 1515:00 23:00 07:00 IntakeIntake Total 1400 ml 200 ml OutputOutput Total 900 ml 500 ml BalanceBalance 500 ml -300 ml Exam pulm-cta abd-soft sba ambulation Results/Medications Result Diagram: 02/18/18 0608 02/18/18 0608 Results 24 hrs Laboratory Tests Test 02/18/18 06:08 White Blood Count 5.8 Red Blood Count 3.81 L Hemoglobin 11.1 L Hematocrit 34.1 L Mean Corpuscular Volume 89.5 Mean Corpuscular Hemoglobin 29.1 Mean Corpuscular Hemoglobin Concent 32.6 Red Cell Distribution Width 11.7 Platelet Count 239 Mean Platelet Volume 9.8 Immature Granulocytes % 0.300 Neutrophils % 51.3 Lymphocytes % 35.4 Monocytes % 7.7 Eosinophils % 5.0 Basophils % 0.3 Nucleated Red Blood Cells % 0.0 Immature Granulocytes # 0.020 Neutrophils # 3.0 Lymphocytes # 2.1 Monocytes # 0.5 Eosinophils # 0.3 Basophils # 0.0 Nucleated Red Blood Cells # 0.0 Sodium Level 142 Potassium Level 4.0 Chloride Level 102 Carbon Dioxide Level 31 Anion Gap 9 Blood Urea Nitrogen 14 Creatinine 0.88 Est Glomerular Filtrat Rate mL/min > 60 Glucose Level 86 Calcium Level 10.5 H Phosphorus Level 4.5 Magnesium Level 2.3 Thyroid Stimulating Hormone (TSH) 3.990 [place] Level 1.2 Medications Current Medications Diphenhydramine HCl (Benadryl) 25 mg Q6H PRN IV ITCHING; Start 02/13/18 at 16:00 Docusate Sodium (Colace) 100 mg BID PO Last administered on 02/18/18at 08:30; Admin Dose 100 MG; Start 02/13/18 at 21:00 Naloxone HCl (Narcan) 0.2 mg Q2M PRN IV OPIATE OVERDOSE; Start 02/13/18 at 16:00 Ondansetron HCl (Zofran Inj) 4 mg Q6H PRN IV NAUSEA AND/OR VOMITING; Start 02/13/18 at 16:00 Phenol (Cepastat Lozenge) 1 lozenge Q2H PRN [place] SORE THROAT; Start 02/13/18 at 16:00 Acetaminophen (Tylenol Tab) 650 mg Q4H PRN PO MILD PAIN(1-3)OR ELEVATED TEMP; Start 02/13/18 at 16:00 Al Hydrox/Mg Hydrox/Simethicone (Mag-Al Plus) 15 ml Q6H PRN PO GASTROINTESTINAL UPSET; Start 02/13/18 at 16:00 Bisacodyl (Dulcolax Supp) 10 mg DAILY PRN [place] CONSTIPATION Last administered on 02/18/18 09:59; Admin Dose 10 MG; Start 02/13/18 at 16:00 Cyclobenzaprine HCl (Flexeril) 10 mg TID PRN PO MUSCLE SPASMS Last administered on 02/17/18 21:13; Admin Dose 10 MG; Start 02/13/18 at 16:00 Diphenhydramine HCl (Benadryl) 25 mg Q6H PRN PO ITCHING; Start 02/13/18 at 16:00 Modafinil (Provigil) 200 mg DAILY PO Last administered on 02/18/18 08:30; Admin Dose 200 MG; Start 02/14/18 at 09:00 Senna (Senokot) 1 tab HS PO Last administered on 02/17/18 21:14; Admin Dose 1 TAB; Start 02/13/18 at 21:00 Magnesium Hydroxide (Milk Of Mag) 30 ml BID PRN PO CONSTIPATION Last administered on 02/17/18 08:13; Admin Dose 30 ML; Start 02/13/18 at 19:00 Lactulose (Enulose) 20 gm DAILY PRN PO CONSTIPATION Last administered on 02/18/18 07:59; Admin Dose 20 GM; Start 02/13/18 at 19:00 Clonazepam (Klonopin) 2 mg HS PRN PO AGITATION/ANXIETY Last administered on 02/17/18 21:13; Admin Dose 2 MG; Start 02/13/18 at 21:13 Oxycodone/ Acetaminophen (Endocet (10/ 325)) 1 tab Q4H PRN PO MODERATE PAIN LEVEL 4-6 Last administered on 1/9/19at 07:59; Admin Dose 1 TAB; Start 02/14/18 at 11:00 Oxycodone/ Acetaminophen (Endocet (10/ 325)) 2 tab Q4H PRN PO SEVERE PAIN LEVEL 7-10 Last administered on 02/17/18at 21:14; Admin Dose 2 TAB; Start 02/14/18 at 11:00 Docosanol (Abreva) 1 applic TID TOP Last administered on 02/18/18at 08:30; Admin Dose 1 APPLIC; Start 02/17/18 at 13:00; Stop 02/22/18 at 12:59 [place] Carbonate ([place] Carbonate) 600 mg AM PO Last administered on 02/18/18at 08:30; Admin Dose 600 MG; Start 02/18/18 at 09:00 [place] Carbonate ([place] Carbonate) 900 mg HS PO ; Start 02/18/18 at 21:00 Assessment/Plan Additional Assessment/Plan Rehab- Right lumbar radiculopathy and history of diskectomy now status post lumbar fusion on 02/11/2018. Patient making good gains with treatment plan Acute pain syndrome-continue current medications Bipolar disorder-continue current medications. Case d/w neuropsychologist Constipation-results with bowel program MALACHI MEZA MD Feb 18, 2018 11:18
[2018-02-18] MEDS: CYCLOBENZAPRINE 10 MG TAB PO PRN ×2 (12:36→21:29)
[2018-02-18 14:00] VITALS: BP 107/62; PULSE 68; RESP 18
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
[2018-02-18 20:00] VITALS: BP 115/71; PULSE 88; RESP 18
[2018-02-18] MEDS ORDERED: LITHIUM CARBONATE 300 MG CAP PO SCH ×2 (21:00)
[2018-02-18] MEDS: SENNA TAB PO SCH (21:00)
[2018-02-18] MEDS: clonAZEPAM 0.5 MG TAB PO PRN (21:31)
[2018-02-19 02:00] VITALS: BP 97/56; PULSE 60; RESP 16
[2018-02-19 07:45] VITALS: BP 106/60; PULSE 67; RESP 18
--- NOTE | 2018-02-19 08:33 | CONS ---
Date/Time of Note Date/Time of Note DATE: 02/19/18 TIME: 08:31 Assessment/Plan Assessment/Plan Assessment/Plan 1. Doing well post op lumbar spine surgery 2. 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 Hypercalcemia sec to lithium, ? immobilization and vol contraction, will red lithium, check level in am, labs to confirm and start NS to vol expand Result Diagram: 02/19/18 0623 02/19/18 0623 Results 24hrs Laboratory Tests Test 02/19/18 06:23 White Blood Count 7.3 # Red Blood Count 4.31 L Hemoglobin 12.4 L Hematocrit 38.5 L Mean Corpuscular Volume 89.3 Mean Corpuscular Hemoglobin 28.8 L Mean Corpuscular Hemoglobin Concent 32.2 Red Cell Distribution Width 11.6 Platelet Count 335 # Mean Platelet Volume 9.5 Immature Granulocytes % 0.300 Neutrophils % 55.4 Lymphocytes % 33.1 Monocytes % 6.5 Eosinophils % 4.3 Basophils % 0.4 Nucleated Red Blood Cells % 0.0 Immature Granulocytes # 0.020 Neutrophils # 4.0 Lymphocytes # 2.4 Monocytes # 0.5 Eosinophils # 0.3 Basophils # 0.0 Nucleated Red Blood Cells # 0.0 Sodium Level 142 Potassium Level 3.7 Chloride Level 104 Carbon Dioxide Level 27 Anion Gap 11 Blood Urea Nitrogen 17 Creatinine 0.90 Est Glomerular Filtrat Rate mL/min > 60 Glucose Level 89 Calcium Level 11.0 H Phosphorus Level 4.2 Magnesium Level 2.2 Consultation Date/Type/Reason Admit Date/Time Feb 13, 2018 at 15:27 Initial Consult Date Detailed Summary Respiratory: No shortness of breath Cardiovascular: No chest pain, No lightheadedness Gastrointestinal: no complaints Genitourinary: no complaints Musculoskeletal: back pain (is less) Exam/Review of Systems Vital Signs Vitals Vital Signs Date Temp Pulse Resp B/P (MAP) Pulse Ox O2 O2 Flow FiO2 Time Delivery Rate 02/19/18 98.2 67 18 106/60 100 Room Air 07:45 (75) Intake and Output 02/18/18 02/18/18 02/19/18 1515:00 23:00 07:00 IntakeIntake Total 1500 ml 500 ml OutputOutput Total 300 ml 950 ml BalanceBalance -300 ml 1500 ml -450 ml Exam Neck: No jvd Respiratory: clear to auscultation Cardiovascular: regular rate and rhythm Gastrointestinal: soft Extremities: No edema Medications Medications Current Medications Diphenhydramine HCl (Benadryl) 25 mg Q6H PRN IV ITCHING; Start 02/13/18 at 16:00 Docusate Sodium (Colace) 100 mg BID PO Last administered on 02/18/18 21:29; Admin Dose 100 MG; Start 02/13/18 at 21:00 Naloxone HCl (Narcan) 0.2 mg Q2M PRN IV OPIATE OVERDOSE; Start 02/13/18 at 16:00 Ondansetron HCl (Zofran Inj) 4 mg Q6H PRN IV NAUSEA AND/OR VOMITING; Start 02/13/18 at 16:00 Phenol (Cepastat Lozenge) 1 lozenge Q2H PRN [place] SORE THROAT; Start 02/13/18 at 16:00 Acetaminophen (Tylenol Tab) 650 mg Q4H PRN PO MILD PAIN(1-3)OR ELEVATED TEMP; Start 02/13/18 at 16:00 Al Hydrox/Mg Hydrox/Simethicone (Mag-Al Plus) 15 ml Q6H PRN PO GASTROINTESTINAL UPSET; Start 02/13/18 at 16:00 Bisacodyl (Dulcolax Supp) 10 mg DAILY PRN [place] CONSTIPATION Last administered on 02/18/18 09:59; Admin Dose 10 MG; Start 02/13/18 at 16:00 Cyclobenzaprine HCl (Flexeril) 10 mg TID PRN PO MUSCLE SPASMS Last administered on 02/18/18 21:29; Admin Dose 10 MG; Start 02/13/18 at 16:00 Diphenhydramine HCl (Benadryl) 25 mg Q6H PRN PO ITCHING; Start 02/13/18 at 16:00 Modafinil (Provigil) 200 mg DAILY PO Last administered on 02/18/18 08:30; Admin Dose 200 MG; Start 02/14/18 at 09:00 Senna (Senokot) 1 tab HS PO Last administered on 02/17/18 21:14; Admin Dose 1 TAB; Start 02/13/18 at 21:00 Magnesium Hydroxide (Milk Of Mag) 30 ml BID PRN PO CONSTIPATION Last administered on 02/17/18 08:13; Admin Dose 30 ML; Start 02/13/18 at 19:00 Lactulose (Enulose) 20 gm DAILY PRN PO CONSTIPATION Last administered on 02/18/18 07:59; Admin Dose 20 GM; Start 02/13/18 at 19:00 Clonazepam (Klonopin) 2 mg HS PRN PO AGITATION/ANXIETY Last administered on 02/18/18 21:31; Admin Dose 2 MG; Start 02/13/18 at 21:13 Oxycodone/ Acetaminophen (Endocet (10/ 325)) 1 tab Q4H PRN PO MODERATE PAIN LEVEL 4-6 Last administered on 02/18/18 12:36; Admin Dose 1 TAB; Start 02/14/18 at 11:00 Oxycodone/ Acetaminophen (Endocet (10/ 325)) 2 tab Q4H PRN PO SEVERE PAIN LEVEL 7-10 Last administered on 02/18/18 21:30; Admin Dose 2 TAB; Start 02/14/18 at 11:00 Docosanol (Abreva) 1 applic TID TOP Last administered on 02/18/18 22:20; Admin Dose 1 APPLIC; Start 02/17/18 at 13:00; Stop 02/22/18 at 12:59 [place] Carbonate ([place] Carbonate) 600 mg AM PO Last administered on 02/18/18 08:30; Admin Dose 600 MG; Start 02/18/18 at 09:00 [place] Carbonate ([place] Carbonate) 900 mg HS PO Last administered on 02/18/18 21:29; Admin Dose 900 MG; Start 02/18/18 at 21:00 BRISSA CHANCE MD Feb 19, 2018 08:33
[2018-02-19] MEDS: DOCUSATE SODIUM 100 MG CAP PO SCH ×2 (09:19→20:15)
[2018-02-19] MEDS: MODAFINIL 200 MG TAB PO SCH (09:19)
[2018-02-19] MEDS: DOCOSANOL 2 GM CREAM TOP SCH ×3 (09:20→20:21)
[2018-02-19] MEDS: LITHIUM CARBONATE 300 MG CAP PO SCH (09:20)
--- NOTE | 2018-02-19 12:38 | PN ---
Date/Time of Note Date/Time of Note DATE: 02/19/18 TIME: 12:30 Subjective Patient feels that he is having a manic episode. He is agreeable to follow up from psych nurse, and current medical management Objective Vital Signs Date Temp Pulse Resp B/P (MAP) Pulse Ox O2 O2 Flow FiO2 Time Delivery Rate 02/19/18 98.2 67 18 106/60 100 Room Air 07:45 (75) Intake and Output 02/18/18 02/18/18 02/19/18 1414:59 22:59 06:59 IntakeIntake Total 1500 ml 500 ml OutputOutput Total 300 ml 950 ml BalanceBalance -300 ml 1500 ml -450 ml Exam pulm-cta abd-soft sba transfers Results/Medications Result Diagram: 02/19/1862202/19/18622 Results 24 hrs Laboratory Tests Test 02/19/18 06:23 02/19/18 08:50 White Blood Count 7.3 # Red Blood Count 4.31 L Hemoglobin 12.4 L Hematocrit 38.5 L Mean Corpuscular Volume 89.3 Mean Corpuscular Hemoglobin 28.8 L Mean Corpuscular Hemoglobin Concent 32.2 Red Cell Distribution Width 11.6 Platelet Count 335 # Mean Platelet Volume 9.5 Immature Granulocytes % 0.300 Neutrophils % 55.4 Lymphocytes % 33.1 Monocytes % 6.5 Eosinophils % 4.3 Basophils % 0.4 Nucleated Red Blood Cells % 0.0 Immature Granulocytes # 0.020 Neutrophils # 4.0 Lymphocytes # 2.4 Monocytes # 0.5 Eosinophils # 0.3 Basophils # 0.0 Nucleated Red Blood Cells # 0.0 Sodium Level 142 Potassium Level 3.7 Chloride Level 104 Carbon Dioxide Level 27 Anion Gap 11 Blood Urea Nitrogen 17 Creatinine 0.90 Est Glomerular Filtrat Rate mL/min > 60 Glucose Level 89 Calcium Level 11.0 H Phosphorus Level 4.2 3.9 Magnesium Level 2.2 2.2 Parathyroid Hormone (Intact) Medications Current Medications Diphenhydramine HCl (Benadryl) 25 mg Q6H PRN IV ITCHING; Start 02/13/18 at 16:00 Docusate Sodium (Colace) 100 mg BID PO Last administered on 02/19/18at 09:19; Admin Dose 100 MG; Start 02/13/18 at 21:00 Naloxone HCl (Narcan) 0.2 mg Q2M PRN IV OPIATE OVERDOSE; Start 02/13/18 at 16:00 Ondansetron HCl (Zofran Inj) 4 mg Q6H PRN IV NAUSEA AND/OR VOMITING; Start 02/13/18 at 16:00 Phenol (Cepastat Lozenge) 1 lozenge Q2H PRN [place] SORE THROAT; Start 02/13/18 at 16:00 Acetaminophen (Tylenol Tab) 650 mg Q4H PRN PO MILD PAIN(1-3)OR ELEVATED TEMP; Start 02/13/18 at 16:00 Al Hydrox/Mg Hydrox/Simethicone (Mag-Al Plus) 15 ml Q6H PRN PO GASTROINTESTINAL UPSET; Start 02/13/18 at 16:00 Bisacodyl (Dulcolax Supp) 10 mg DAILY PRN [place] CONSTIPATION Last administered on 02/18/18 09:59; Admin Dose 10 MG; Start 02/13/18 at 16:00 Cyclobenzaprine HCl (Flexeril) 10 mg TID PRN PO MUSCLE SPASMS Last administered on 02/18/18 21:29; Admin Dose 10 MG; Start 02/13/18 at 16:00 Diphenhydramine HCl (Benadryl) 25 mg Q6H PRN PO ITCHING; Start 02/13/18 at 16:00 Modafinil (Provigil) 200 mg DAILY PO Last administered on 02/19/18 09:19; Admin Dose 200 MG; Start 02/14/18 at 09:00 Senna (Senokot) 1 tab HS PO Last administered on 02/17/18 21:14; Admin Dose 1 TAB; Start 02/13/18 at 21:00 Magnesium Hydroxide (Milk Of Mag) 30 ml BID PRN PO CONSTIPATION Last administered on 02/17/18 08:13; Admin Dose 30 ML; Start 02/13/18 at 19:00 Lactulose (Enulose) 20 gm DAILY PRN PO CONSTIPATION Last administered on 02/18/18 07:59; Admin Dose 20 GM; Start 02/13/18 at 19:00 Clonazepam (Klonopin) 2 mg HS PRN PO AGITATION/ANXIETY Last administered on 02/18/18 21:31; Admin Dose 2 MG; Start 02/13/18 at 21:13 Oxycodone/ Acetaminophen (Endocet (10/ 325)) 1 tab Q4H PRN PO MODERATE PAIN LEVEL 4-6 Last administered on 02/18/18at 12:36; Admin Dose 1 TAB; Start 02/14/18 at 11:00 Oxycodone/ Acetaminophen (Endocet (10/ 325)) 2 tab Q4H PRN PO SEVERE PAIN LEVEL 7-10 Last administered on 02/18/18at 21:30; Admin Dose 2 TAB; Start 02/14/18 at 11:00 Docosanol (Abreva) 1 applic TID TOP Last administered on 02/19/18at 09:20; Admin Dose 1 APPLIC; Start 02/17/18 at 13:00; Stop 02/22/18 at 12:59 [place] Carbonate ([place] Carbonate) 600 mg AM PO Last administered on 02/19/18at 09:20; Admin Dose 600 MG; Start 02/18/18 at 09:00 [place] Carbonate ([place] Carbonate) 600 mg HS PO ; Start 02/19/18 at 21:00 Sodium Chloride 1,000 ml @ 75 mls/hr [id number] IV ; Start 02/19/18 at 09:00 Assessment/Plan Additional Assessment/Plan Rehab- Right lumbar radiculopathy and history of diskectomy now status post lumbar fusion on 02/11/2018. Activities as tolerated during current psychiatric issues/concerns. D/w staff regarding activities as tolerated Acute pain syndrome-Patient would like cannabis, but we do not have that option at [facility]. This was discussed with patient, and he is agreeable with transition from percocet to norco Bipolar disorder-continue neuropsychologist follow up. Will ask Psych nurse for follow up, given the concern of a manic episode. Patient's lithium decreased due to hypercalcemia Hypercalcemia- case d/w Dr. Ortega. Patient to receive IVF, and is now agreeable after discussion/review. Constipation- continue bowel program MALACHI MEZA MD Feb 19, 2018 12:38
[2018-02-19] MEDS ORDERED: HYDROCODONE/APAP (5/325) TAB PO PRN ×2 (13:20)
[2018-02-19] MEDS: SOD CHLORIDE 0.9% 1,000 ML IV SCH ×2 (13:40→22:20)
[2018-02-19 14:00] VITALS: BP 119/70; PULSE 78; RESP 19
[2018-02-19] MEDS: clonAZEPAM 0.5 MG TAB PO PRN (17:17)
[2018-02-19] MEDS ORDERED: CARISOPRODOL 350 MG TAB PO PRN (18:00)
[2018-02-19 20:00] VITALS: BP 112/66; PULSE 74; RESP 18
[2018-02-19] MEDS: SENNA TAB PO SCH (20:15)
[2018-02-19] MEDS ORDERED: LITHIUM CARBONATE 300 MG CAP PO SCH (21:00)
[2018-02-20 02:00] VITALS: BP 107/67; PULSE 74; RESP 18
[2018-02-20] MEDS: SOD CHLORIDE 0.9% 1,000 ML IV SCH (06:44)
[2018-02-20 08:00] VITALS: BP 120/72; PULSE 89; RESP 16
[2018-02-20] MEDS: MODAFINIL 200 MG TAB PO SCH (08:38)
[2018-02-20] MEDS: DOCUSATE SODIUM 100 MG CAP PO SCH ×2 (08:38→20:50)
[2018-02-20] MEDS: LITHIUM CARBONATE 300 MG CAP PO SCH ×2 (08:39→20:41)
[2018-02-20] MEDS: DOCOSANOL 2 GM CREAM TOP SCH ×3 (08:39→20:50)
[2018-02-20] MEDS ORDERED: MELATONIN 5 MG TABLET PO PRN (11:30)
--- NOTE | 2018-02-20 12:00 | PSY ---
Date/Time of Note Date/Time of Note DATE: 02/20/18 TIME: 11:57 Psychiatric Subjective Eval Subjective Evaluation Patient location: inpatient Hospitalization: yes Allergies: Coded Allergies: No Known Allergy (Unverified , 02/11/18) Social History Marital status: single DPA/Conservatorship: No Psychiatric Objective Eval Mental Status Examination: Laboratory Results Laboratory Tests Test 02/19/18 06:23 02/19/18 08:50 02/19/18 10:30 02/20/18 06:34 White Blood Count 7.3 10^3/ul Red Blood Count 4.31 10^6/ul Hemoglobin 12.4 g/dl Hematocrit 38.5 % Mean Corpuscular 89.3 fl Volume Mean Corpuscular 28.8 pg Hemoglobin Mean Corpuscular 32.2 g/dl Hemoglobin Concent Red Cell 11.6 % Distribution Width Platelet Count 335 10^3/UL Mean Platelet 9.5 fl Volume Immature 0.300 % Granulocytes % Neutrophils % 55.4 % Lymphocytes % 33.1 % Monocytes % 6.5 % Eosinophils % 4.3 % Basophils % 0.4 % Nucleated Red Blood 0.0 /100WBC Cells % Immature 0.020 10^3/ul Granulocytes # Neutrophils # 4.0 10^3/ul Lymphocytes # 2.4 10^3/ul Monocytes # 0.5 10^3/ul Eosinophils # 0.3 10^3/ul Basophils # 0.0 10^3/ul Nucleated Red Blood 0.0 10^3/ul Cells # Sodium Level 142 mmol/L 142 mmol/L Potassium Level 3.7 mmol/L 3.4 mmol/L Chloride Level 104 mmol/L 108 mmol/L Carbon Dioxide 27 mmol/L 23 mmol/L Level Anion Gap 11 11 Blood Urea Nitrogen 17 mg/dl 16 mg/dl Creatinine 0.90 mg/dl 0.83 mg/dl Est Glomerular > 60 mL/min > 60 mL/min Filtrat Rate mL/min Glucose Level 89 mg/dl 86 mg/dl Calcium Level 11.0 mg/dl 10.1 mg/dl Phosphorus Level 4.2 mg/dl 3.9 mg/dl 2.7 mg/dl Magnesium Level 2.2 mg/dl 2.2 mg/dl 2.2 mg/dl Parathyroid Hormone pg/ml (Intact) Urine Random Sodium 25 mmol/L [place] Level 1.0 mmol/L Assessment and Plan Assessment/Diagnosis Diagnosis Bipolar Disorder Manic Recommendation/Plan Medication Management Continue current meds Multiple antipsychotics: No Discharge Disposition: Other Legal Status: Voluntary (No criteria for 5150 hold) RUBIO TRIVEDI NP Feb 20, 2018 12:00
--- NOTE | 2018-02-20 12:03 | CONS ---
Date/Time of Note Date/Time of Note DATE: 02/20/18 TIME: 12:01 Consult Date/Type/Reason Admit Date Feb 13, 2018 at 15:27 Type of Consult Psych Reason for Consult Racing thoughts or manic episodes Subjective Upon evaluation today patient states he is having racing thoughts he is increasingly anxious with a lot of energy and patient is afraid he might hurt somebody of the offensive with his behavior. He requested for his lithium to be increased, lithium level today is 1.[address] Vieira and we both agreed that lithium should be increased to 800 mg twice a day Objective Patient Appearance: Appropriate dress Voice Loudness: Mildly Soft/Quiet Mood and Affect Description: Anxious Mood or Affect: Anxious Thought Process: Goal Oriented Hallucination Type: None Delusion Description: Not Present Assessment/Plan Recommendations Increase lithium to 800 mg twice a day RUBIO TRIVEDI NP Feb 20, 2018 12:03
[2018-02-20] MEDS: BISACODYL 10 MG SUPP PR PRN (12:44)
[2018-02-20] MEDS: BACLOFEN 10 MG TAB PO SCH ×2 (12:44→20:41)
--- NOTE | 2018-02-20 13:48 | CONS ---
Date/Time of Note Date/Time of Note DATE: 02/20/18 TIME: 13:45 Assessment/Plan Assessment/Plan Hospital Course 1. Doing well post op lumbar spine surgery . Continue current physical therapy program. 2. Psyc disorder, he has been anxious and in the informatics consultant has decided to increase his lithium dose. Will see if this helps his mood. 3. Hypercalcemia , the calcium level is normal today. Result Diagram: 02/19/18 0623 02/20/18 0634 Results 24hrs Laboratory Tests Test 02/20/18 06:34 Sodium Level 142 Potassium Level 3.4 L Chloride Level 108 Carbon Dioxide Level 23 Anion Gap 11 Blood Urea Nitrogen 16 Creatinine 0.83 Est Glomerular Filtrat Rate mL/min > 60 Glucose Level 86 Calcium Level 10.1 Phosphorus Level 2.7 Magnesium Level 2.2 [place] Level 1.0 Consultation Date/Type/Reason Admit Date/Time Feb 13, 2018 at 15:27 Initial Consult Date 24 HR Interval Summary Free Text/Dictation The patient is being seen in medical follow-up. He is awake and alert. He has been feeling anxious and the psychiatric nurse practitioner has adjusted his lithium medication. Constitutional: no complaints, improved Exam/Review of Systems Vital Signs Vitals Vital Signs Date Temp Pulse Resp B/P (MAP) Pulse Ox O2 O2 Flow FiO2 Time Delivery Rate 02/20/18 98.2 74 18 107/67 99 Room Air 02:00 (80) Intake and Output 02/19/18 02/19/18 02/20/18 1515:00 23:00 07:00 IntakeIntake Total 375 ml 1270 ml OutputOutput Total 1100 ml 850 ml BalanceBalance -725 ml 420 ml Exam Constitutional: alert, oriented, well developed Respiratory: clear to auscultation, normal air movement Cardiovascular: regular rate and rhythm Gastrointestinal: soft, non-tender Musculoskeletal: nl extremities to inspection Medications Medications Current Medications Diphenhydramine HCl (Benadryl) 25 mg Q6H PRN IV ITCHING; Start 02/13/18 at 16:00 Docusate Sodium (Colace) 100 mg BID PO Last administered on 02/20/18at 08:38; Admin Dose 100 MG; Start 02/13/18 at 21:00 Naloxone HCl (Narcan) 0.2 mg Q2M PRN IV OPIATE OVERDOSE; Start 02/13/18 at 16:00 Ondansetron HCl (Zofran Inj) 4 mg Q6H PRN IV NAUSEA AND/OR VOMITING; Start 02/13/18 at 16:00 Phenol (Cepastat Lozenge) 1 lozenge Q2H PRN [place] SORE THROAT; Start 02/13/18 at 16:00 Acetaminophen (Tylenol Tab) 650 mg Q4H PRN PO MILD PAIN(1-3)OR ELEVATED TEMP Last administered on 02/20/18 00:34; Admin Dose 650 MG; Start 02/13/18 at 16:00 Al Hydrox/Mg Hydrox/Simethicone (Mag-Al Plus) 15 ml Q6H PRN PO GASTROINTESTINAL UPSET; Start 02/13/18 at 16:00 Bisacodyl (Dulcolax Supp) 10 mg DAILY PRN [place] CONSTIPATION Last administered on 02/20/18 12:44; Admin Dose 10 MG; Start 02/13/18 at 16:00 Diphenhydramine HCl (Benadryl) 25 mg Q6H PRN PO ITCHING Last administered on 02/20/18 00:34; Admin Dose 25 MG; Start 02/13/18 at 16:00 Modafinil (Provigil) 200 mg DAILY PO Last administered on 02/20/18 08:38; Admin Dose 200 MG; Start 02/14/18 at 09:00 Senna (Senokot) 1 tab HS PO Last administered on 02/19/18 20:15; Admin Dose 1 TAB; Start 02/13/18 at 21:00 Magnesium Hydroxide (Milk Of Mag) 30 ml BID PRN PO CONSTIPATION Last administer ed on 02/17/18 08:13; Admin Dose 30 ML; Start 02/13/18 at 19:00 Lactulose (Enulose) 20 gm DAILY PRN PO CONSTIPATION Last administered on 02/18/18 07:59; Admin Dose 20 GM; Start 02/13/18 at 19:00 Clonazepam (Klonopin) 2 mg HS PRN PO AGITATION/ANXIETY Last administered on 02/19/18 17:17; Admin Dose 2 MG; Start 02/13/18 at 21:13 Docosanol (Abreva) 1 applic TID TOP Last administered on 02/20/18 12:44; Admin Dose 1 APPLIC; Start 02/17/18 at 13:00; Stop 02/22/18 at 12:59 Sodium Chloride 1,000 ml @ 75 mls/hr [id number] IV Last administered on 02/20/18at 06:44; Admin Dose 75 MLS/HR; Start 02/19/18 at 09:00 Acetaminophen/ Hydrocodone Bitart ([place] (5/325)) 1 tab Q4H PRN PO MODERATE PAIN LEVEL 4-6; Start 02/19/18 at 13:20 Acetaminophen/ Hydrocodone Bitart ([place] (5/325)) 2 tab Q4H PRN PO SEVERE PAIN LEVEL 7-10 Last administered on 02/19/18at 13:31; Admin Dose 2 TAB; Start 02/19/18 at 13:20 Miscellaneous Information Patients own medicat... BID@10,16 XX ; Start 02/20/18 at 16:00 Baclofen (Lioresal) 10 mg TID PO Last administered on 02/20/18at 12:44; Admin Dose 10 MG; Start 02/20/18 at 13:00 Melatonin (Melatonin) 5 mg QHS PRN PO INSOMNIA; Start 02/20/18 at 11:30 [place] Carbonate ([place] Carbonate) 900 mg AM PO ; Start 02/21/18 at 09:00 [place] Carbonate ([place] Carbonate) 600 mg HS PO ; Start 02/20/18 at 21:00 NIKHIL NEGRETE MD Feb 20, 2018 13:48
--- NOTE | 2018-02-20 13:53 | PN ---
Date/Time of Note Date/Time of Note DATE: 02/20/18 TIME: 13:52 Subjective case d/w school psychologist, who rec increaing lithium due to current manic phase Objective Vital Signs Date Temp Pulse Resp B/P (MAP) Pulse Ox O2 O2 Flow FiO2 Time Delivery Rate 02/20/18 98.2 74 18 107/67 99 Room Air 02:00 (80) Intake and Output 02/19/18 02/19/18 02/20/18 1515:00 23:00 07:00 IntakeIntake Total 375 ml 1270 ml OutputOutput Total 1100 ml 850 ml BalanceBalance -725 ml 420 ml Exam pulm-cta abd-soft sba ambulation Results/Medications Result Diagram: 02/19/18 0623 02/20/18 0634 Results 24 hrs Laboratory Tests Test 02/20/18 06:34 Sodium Level 142 Potassium Level 3.4 L Chloride Level 108 Carbon Dioxide Level 23 Anion Gap 11 Blood Urea Nitrogen 16 Creatinine 0.83 Est Glomerular Filtrat Rate mL/min > 60 Glucose Level 86 Calcium Level 10.1 Phosphorus Level 2.7 Magnesium Level 2.2 [place] Level 1.0 Medications Current Medications Diphenhydramine HCl (Benadryl) 25 mg Q6H PRN IV ITCHING; Start 02/13/18 at 16:00 Docusate Sodium (Colace) 100 mg BID PO Last administered on 02/20/18at 08:38; Admin Dose 100 MG; Start 02/13/18 at 21:00 Naloxone HCl (Narcan) 0.2 mg Q2M PRN IV OPIATE OVERDOSE; Start 02/13/18 at 16:00 Ondansetron HCl (Zofran Inj) 4 mg Q6H PRN IV NAUSEA AND/OR VOMITING; Start 02/13/18 at 16:00 Phenol (Cepastat Lozenge) 1 lozenge Q2H PRN [place] SORE THROAT; Start 02/13/18 at 16:00 Acetaminophen (Tylenol Tab) 650 mg Q4H PRN PO MILD PAIN(1-3)OR ELEVATED TEMP Last administered on 02/20/18at 00:34; Admin Dose 650 MG; Start 02/13/18 at 16:00 Al Hydrox/Mg Hydrox/Simethicone (Mag-Al Plus) 15 ml Q6H PRN PO GASTROINTESTINAL UPSET; Start 02/13/18 at 16:00 Bisacodyl (Dulcolax Supp) 10 mg DAILY PRN [place] CONSTIPATION Last administered on 02/20/18 12:44; Admin Dose 10 MG; Start 02/13/18 at 16:00 Diphenhydramine HCl (Benadryl) 25 mg Q6H PRN PO ITCHING Last administered on 02/20/18 00:34; Admin Dose 25 MG; Start 02/13/18 at 16:00 Modafinil (Provigil) 200 mg DAILY PO Last administered on 02/20/18 08:38; Admin Dose 200 MG; Start 02/14/18 at 09:00 Senna (Senokot) 1 tab HS PO Last administered on 02/19/18 20:15; Admin Dose 1 TAB; Start 02/13/18 at 21:00 Magnesium Hydroxide (Milk Of Mag) 30 ml BID PRN PO CONSTIPATION Last administered on 02/17/18 08:13; Admin Dose 30 ML; Start 02/13/18 at 19:00 Lactulose (Enulose) 20 gm DAILY PRN PO CONSTIPATION Last administered on 02/18/18 07:59; Admin Dose 20 GM; Start 02/13/18 at 19:00 Clonazepam (Klonopin) 2 mg HS PRN PO AGITATION/ANXIETY Last administered on 02/19/18 17:17; Admin Dose 2 MG; Start 02/13/18 at 21:13 Docosanol (Abreva) 1 applic TID TOP Last administered on 02/20/18 12:44; Admin Dose 1 APPLIC; Start 02/17/18 at 13:00; Stop 02/22/18 at 12:59 Sodium Chloride 1,000 ml @ 75 mls/hr [id number] IV Last administered on 02/20/18 06:44; Admin Dose 75 MLS/HR; Start 02/19/18 at 09:00 Acetaminophen/ Hydrocodone Bitart ([place] (5/325)) 1 tab Q4H PRN PO MODERATE PAIN LEVEL 4-6; Start 02/19/18 at 13:20 Acetaminophen/ Hydrocodone Bitart ([place] (5/325)) 2 tab Q4H PRN PO SEVERE PAIN LEVEL 7-10 Last administered on 02/19/18 13:31; Admin Dose 2 TAB; Start 02/19/18 at 13:20 Miscellaneous Information Patients own medicat... BID@ XX ; Start 02/20/18 at 16:00 Baclofen (Lioresal) 10 mg TID PO Last administered on 02/20/18at 12:44; Admin Dose 10 MG; Start 02/20/18 at 13:00 Melatonin (Melatonin) 5 mg QHS PRN PO INSOMNIA; Start 02/20/18 at 11:30 [place] Carbonate ([place] Carbonate) 900 mg AM PO ; Start 02/21/18 at 09:00 [place] Carbonate ([place] Carbonate) 600 mg HS PO ; Start 02/20/18 at 21:00 Potassium Chloride (Klor-Con 10) 30 meq ONCE ONCE PO ; Start 02/20/18 at 14:00; Stop 02/20/18 at 14:01 Assessment/Plan Additional Assessment/Plan Rehab- Rehab- Right lumbar radiculopathy and history of diskectomy now status post lumbar fusion on 02/11/2018. Activities as tolerated during current psychiatric issues/concerns. Acute pain syndrome- norco; Baclofen added Bipolar disorder-D/W Psych nurse, will slowly increae [place] now that Ca level improved Hypercalcemia- IVF Constipation- continue bowel program MALACHI MEZA MD Feb 20, 2018 13:53
[2018-02-20] MEDS ORDERED: POTASSIUM CHLORIDE (SR) 10 MEQ TAB PO ONE (14:00)
[2018-02-20 17:00] VITALS: BP 118/68; PULSE 82; RESP 18
[2018-02-20 18:37] LABS: PTH CALCIUM 10.2 mg/dL (8.6-10.3)
[2018-02-20 19:33] VITALS: BP 125/72; PULSE 77; RESP 18
[2018-02-20] MEDS: clonAZEPAM 0.5 MG TAB PO PRN (20:46)
[2018-02-20] MEDS: SENNA TAB PO SCH (20:50)
[2018-02-21 02:00] VITALS: BP 116/65; PULSE 72; RESP 18
[2018-02-21] MEDS ORDERED: BACLOFEN 10 MG TAB PO ONE (03:30)
[2018-02-21] MEDS ORDERED: POTASSIUM CHLORIDE (SR) 20 MEQ TAB PO STA (06:20)
[2018-02-21 07:30] VITALS: BP 108/63; PULSE 67; RESP 18
[2018-02-21] MEDS ORDERED: HYDROCODONE/APAP (5/325) TAB PO PRN (08:00)
[2018-02-21] MEDS: BACLOFEN 10 MG TAB PO SCH ×3 (08:11→20:14)
[2018-02-21] MEDS: GABAPENTIN 100 MG CAP PO SCH ×2 (08:11→20:15)
[2018-02-21] MEDS: LIDOCAINE 5% PATCH TD SCH (08:12)
[2018-02-21] MEDS: MODAFINIL 200 MG TAB PO SCH (08:12)
[2018-02-21] MEDS: LITHIUM CARBONATE 300 MG CAP PO SCH ×2 (08:12→20:15)
[2018-02-21] MEDS: DOCOSANOL 2 GM CREAM TOP SCH ×3 (08:12→20:14)
[2018-02-21] MEDS: DOCUSATE SODIUM 100 MG CAP PO SCH ×2 (08:13→20:14)
--- NOTE | 2018-02-21 08:49 | PN ---
Date/Time of Note Date/Time of Note DATE: 02/21/18 TIME: 08:49 Subjective Patient complains of bilateral rib pain. Does not want to take pain medications because he feels that it affects his bipolar disorder. He was agreeable to neurontin and motrin Objective Vital Signs Date Temp Pulse Resp B/P (MAP) Pulse Ox O2 O2 Flow FiO2 Time Delivery Rate 02/21/18 98.0 67 18 108/63 100 Room Air 07:30 (78) Intake and Output 02/20/18 02/20/18 02/21/18 1515:00 23:00 07:00 IntakeIntake Total 225 ml 3500 ml 550 ml OutputOutput Total 2800 ml 600 ml BalanceBalance 225 ml 700 ml -50 ml Exam pulm-cta abd-soft Results/Medications Result Diagram: 02/21/184 02/21/18 0324 Results 24 hrs Laboratory Tests Test 02/21/18 03:24 02/21/18 03:40 White Blood Count 9.4 # Red Blood Count 3.94 L Hemoglobin 11.5 L Hematocrit 34.2 L Mean Corpuscular Volume 86.8 Mean Corpuscular Hemoglobin 29.2 Mean Corpuscular Hemoglobin Concent 33.6 Red Cell Distribution Width 11.6 Platelet Count 373 Mean Platelet Volume 9.5 Immature Granulocytes % 0.300 Neutrophils % 64.3 Lymphocytes % 27.0 Monocytes % 6.8 Eosinophils % 1.3 Basophils % 0.3 Nucleated Red Blood Cells % 0.0 Immature Granulocytes # 0.030 Neutrophils # 6.0 Lymphocytes # 2.5 Monocytes # 0.6 Eosinophils # 0.1 Basophils # 0.0 Nucleated Red Blood Cells # 0.0 Sodium Level 146 H Potassium Level 3.4 L Chloride Level 111 H Carbon Dioxide Level 22 Anion Gap 13 Blood Urea Nitrogen 14 Creatinine 0.84 Est Glomerular Filtrat Rate mL/min > 60 Glucose Level 95 Calcium Level 11.0 H Total Bilirubin 0.4 Direct Bilirubin 0.00 Indirect Bilirubin 0.4 Aspartate Amino Transf (AST/SGOT) 31 Alanine Aminotransferase (ALT/SGPT) 31 Alkaline Phosphatase 87 Total Protein 7.5 Albumin 4.4 Globulin 3.10 Albumin/Globulin Ratio 1.41 Urine Color STRAW Urine Clarity CLEAR Urine pH 8.0 Urine Specific [place] 1.004 Urine Ketones NEGATIVE Urine Nitrite NEGATIVE Urine Bilirubin NEGATIVE Urine Urobilinogen NEGATIVE Urine Leukocyte Esterase NEGATIVE Urine Hemoglobin NEGATIVE Urine Glucose NEGATIVE Urine Total Protein NEGATIVE Medications Current Medications Diphenhydramine HCl (Benadryl) 25 mg Q6H PRN IV ITCHING; Start 02/13/18 at 16:00 Docusate Sodium (Colace) 100 mg BID PO Last administered on 02/20/18at 08:38; Admin Dose 100 MG; Start 02/13/18 at 21:00 Naloxone HCl (Narcan) 0.2 mg Q2M PRN IV OPIATE OVERDOSE; Start 02/13/18 at 16:00 Ondansetron HCl (Zofran Inj) 4 mg Q6H PRN IV NAUSEA AND/OR VOMITING; Start 02/13/18 at 16:00 Phenol (Cepastat Lozenge) 1 lozenge Q2H PRN [place] SORE THROAT; Start 02/13/18 at 16:00 Acetaminophen (Tylenol Tab) 650 mg Q4H PRN PO MILD PAIN(1-3)OR ELEVATED TEMP Last administered on 02/20/18at 00:34; Admin Dose 650 MG; Start 02/13/18 at 16:00 Al Hydrox/Mg Hydrox/Simethicone (Mag-Al Plus) 15 ml Q6H PRN PO GASTROINTESTINAL UPSET; Start 02/13/18 at 16:00 Bisacodyl (Dulcolax Supp) 10 mg DAILY PRN [place] CONSTIPATION Last administered on 02/20/18at 12:44; Admin Dose 10 MG; Start 02/13/18 at 16:00 Diphenhydramine HCl (Benadryl) 25 mg Q6H PRN PO ITCHING Last administered on 02/20/18at 00:34; Admin Dose 25 MG; Start 02/13/18 at 16:00 Modafinil (Provigil) 200 mg DAILY PO Last administered on 02/21/18 08:12; Admin Dose 200 MG; Start 02/14/18 at 09:00 Senna (Senokot) 1 tab HS PO Last administered on 02/19/18at 20:15; Admin Dose 1 TAB; Start 02/13/18 at 21:00 Magnesium Hydroxide (Milk Of Mag) 30 ml BID PRN [place] CONSTIPATION Last administered on 02/17/18 08:13; Admin Dose 30 ML; Start 02/13/18 at 19:00 Lactulose (Enulose) 20 gm DAILY PRN PO CONSTIPATION Last administered on 02/18/18 07:59; Admin Dose 20 GM; Start 02/13/18 at 19:00 Clonazepam (Klonopin) 2 mg HS PRN PO AGITATION/ANXIETY Last administered on 02/20/18 20:46; Admin Dose 2 MG; Start 02/13/18 at 21:13 Docosanol (Abreva) 1 applic TID TOP Last administered on 02/21/18 08:12; Admin Dose 1 APPLIC; Start 02/17/18 at 13:00; Stop 02/22/18 at 12:59 Miscellaneous Information Patients own medicat... BID@10,16 XX ; Start 02/20/18 at 16:00 Baclofen (Lioresal) 10 mg TID PO Last administered on 02/21/18 08:11; Admin Dose 10 MG; Start 02/20/18 at 13:00 Melatonin (Melatonin) 5 mg QHS PRN PO INSOMNIA Last administered on 02/20/18 20:42; Admin Dose 5 MG; Start 02/20/18 at 11:30 [place] Carbonate ([place] Carbonate) 900 mg AM PO Last administered on 02/21/18 08:12; Admin Dose 900 MG; Start 02/21/18 at 09:00 [place] Carbonate ([place] Carbonate) 600 mg HS PO Last administered on 02/20/18 20:41; Admin Dose 600 MG; Start 02/20/18 at 21:00 Acetaminophen/ Hydrocodone Bitart ([place] (5/325)) 1 tab BID PRN PO MODERATE PAIN LEVEL 4-6; Start 02/21/18 at 08:00 Gabapentin (Neurontin) 100 mg BID PO Last administered on 02/21/18 08:11; Admin Dose 100 MG; Start 02/21/18 at 09:00 Lidocaine (Lidoderm) 1 patch DAILY TD Last administered on 02/21/18 08:12; Admin Dose 1 PATCH; Start 02/21/18 at 09:00 Assessment/Plan Additional Assessment/Plan Rehab- Lumbar radic-s/p lumbar fusion Activities as tolerated Psych- will ask for psych follow up. Continue [place] FEN- encourage po intake/fluids Pain- norco, motrin, neurontin. He does feel that the baclofen has helped MALACHI MEZA MD Feb 21, 2018 08:49
[2018-02-21] MEDS: IBUPROFEN 200 MG TAB PO PRN ×2 (12:01→19:46)
--- NOTE | 2018-02-21 13:36 | PN ---
Date/Time of Note Date/Time of Note DATE: 02/21/18 TIME: 13:29 Assessment/Plan VTE Prophylaxis Risk score (from Nsg)>0 risk: 2 SCD applied (from Ns): Yes Pharmacological prophylaxis: NA/contraindicated, other Pharm contraindication: low risk/ambulating, other Lines/Catheters IV Catheter Type (from Nrsg): [place] Urinary Cath still in place: No Assessment/Plan Assessment/Plan 1.) Your rehab plans post op. 2.) [place] increased per card lacer jacquard. Monitor 3.) ? Etiology of rib pain, labs essentially normal, CXR normal, ? musculoskeletal pain. 4.) Potassium supplemented. Follow labs. 5.) DVT Prophylaxis - SCD's Result Diagram: 02/21/18 0324 02/21/18 0324 Results 24hrs Laboratory Tests Test 02/21/18 03:24 02/21/18 03:40 White Blood Count 9.4 # Red Blood Count 3.94 L Hemoglobin 11.5 L Hematocrit 34.2 L Mean Corpuscular Volume 86.8 Mean Corpuscular Hemoglobin 29.2 Mean Corpuscular Hemoglobin Concent 33.6 Red Cell Distribution Width 11.6 Platelet Count 373 Mean Platelet Volume 9.5 Immature Granulocytes % 0.300 Neutrophils % 64.3 Lymphocytes % 27.0 Monocytes % 6.8 Eosinophils % 1.3 Basophils % 0.3 Nucleated Red Blood Cells % 0.0 Immature Granulocytes # 0.030 Neutrophils # 6.0 Lymphocytes # 2.5 Monocytes # 0.6 Eosinophils # 0.1 Basophils # 0.0 Nucleated Red Blood Cells # 0.0 Sodium Level 146 H Potassium Level 3.4 L Chloride Level 111 H Carbon Dioxide Level 22 Anion Gap 13 Blood Urea Nitrogen 14 Creatinine 0.84 Est Glomerular Filtrat Rate mL/min > 60 Glucose Level 95 Calcium Level 11.0 H Total Bilirubin 0.4 Direct Bilirubin 0.00 Indirect Bilirubin 0.4 Aspartate Amino Transf (AST/SGOT) 31 Alanine Aminotransferase (ALT/SGPT) 31 Alkaline Phosphatase 87 Total Protein 7.5 Albumin 4.4 Globulin 3.10 Albumin/Globulin Ratio 1.41 Urine Color STRAW Urine Clarity CLEAR Urine pH 8.0 Urine Specific [place] 1.004 Urine Ketones NEGATIVE Urine Nitrite NEGATIVE Urine Bilirubin NEGATIVE Urine Urobilinogen NEGATIVE Urine Leukocyte Esterase NEGATIVE Urine Hemoglobin NEGATIVE Urine Glucose NEGATIVE Urine Total Protein NEGATIVE Subjective 24 Hr Interval Summary Free Text/Dictation Has increased pain in bilateral lower ribs area. No Dyspnea but mild nausea, no emesis Cardiovascular: chest pain Exam/Review of Systems Vital Signs Vitals Vital Signs Date Temp Pulse Resp B/P (MAP) Pulse Ox O2 O2 Flow FiO2 Time Delivery Rate 02/21/18 98.0 67 18 108/63 100 Room Air 07:30 (78) Intake and Output 02/20/18 02/20/18 02/21/18 1515:00 23:00 07:00 IntakeIntake Total 225 ml 3500 ml 550 ml OutputOutput Total 2800 ml 600 ml BalanceBalance 225 ml 700 ml -50 ml Exam Respiratory: clear to auscultation, normal air movement Cardiovascular: regular rate and rhythm, nl pulses Gastrointestinal: soft, non-tender Musculoskeletal: nl extremities to inspection Extremities: normal pulses Medications Medications Current Medications Diphenhydramine HCl (Benadryl) 25 mg Q6H PRN IV ITCHING; Start 02/13/18 at 16:00 Docusate Sodium (Colace) 100 mg BID PO Last administered on 02/20/18at 08:38; Admin Dose 100 MG; Start 02/13/18 at 21:00 Naloxone HCl (Narcan) 0.2 mg Q2M PRN IV OPIATE OVERDOSE; Start 02/13/18 at 16:00 Ondansetron HCl (Zofran Inj) 4 mg Q6H PRN IV NAUSEA AND/OR VOMITING; Start 02/13/18 at 16:00 Phenol (Cepastat Lozenge) 1 lozenge Q2H PRN [place] SORE THROAT; Start 02/13/18 at 16:00 Acetaminophen (Tylenol Tab) 650 mg Q4H PRN PO MILD PAIN(1-3)OR ELEVATED TEMP Last administered on 02/20/18at 00:34; Admin Dose 650 MG; Start 02/13/18 at 16:00 Al Hydrox/Mg Hydrox/Simethicone (Mag-Al Plus) 15 ml Q6H PRN PO GASTROINTESTINAL UPSET; Start 02/13/18 at 16:00 Bisacodyl (Dulcolax Supp) 10 mg DAILY PRN [place] CONSTIPATION Last administered on 02/20/18at 12:44; Admin Dose 10 MG; Start 02/13/18 at 16:00 Diphenhydramine HCl (Benadryl) 25 mg Q6H PRN PO ITCHING Last administered on 02/20/18 00:34; Admin Dose 25 MG; Start 02/13/18 at 16:00 Modafinil (Provigil) 200 mg DAILY PO Last administered on 02/21/18 08:12; Admin Dose 200 MG; Start 02/14/18 at 09:00 Senna (Senokot) 1 tab HS PO Last administered on 02/19/18 20:15; Admin Dose 1 TAB; Start 02/13/18 at 21:00 Magnesium Hydroxide (Milk Of Mag) 30 ml BID PRN PO CONSTIPATION Last administered on 02/17/18 08:13; Admin Dose 30 ML; Start 02/13/18 at 19:00 Lactulose (Enulose) 20 gm DAILY PRN PO CONSTIPATION Last administered on 02/18/18 07:59; Admin Dose 20 GM; Start 02/13/18 at 19:00 Clonazepam (Klonopin) 2 mg HS PRN PO AGITATION/ANXIETY Last administered on 02/20/18 20:46; Admin Dose 2 MG; Start 02/13/18 at 21:13 Docosanol (Abreva) 1 applic TID TOP Last administered on 02/21/18 12:01; Admin Dose 1 APPLIC; Start 02/17/18 at 13:00; Stop 02/22/18 at 12:59 Miscellaneous Information Patients own medicat... BID@10,16 XX ; Start 02/20/18 at 16:00 Baclofen (Lioresal) 10 mg TID PO Last administered on 02/21/18 12:01; Admin Dose 10 MG; Start 02/20/18 at 13:00 Melatonin (Melatonin) 5 mg QHS PRN PO INSOMNIA Last administered on 02/20/18 20:42; Admin Dose 5 MG; Start 02/20/18 at 11:30 [place] Carbonate ([place] Carbonate) 900 mg AM PO Last administered on 02/21/18 08:12; Admin Dose 900 MG; Start 02/21/18 at 09:00 [place] Carbonate ([place] Carbonate) 600 mg HS PO Last administered on 02/20/18 20:41; Admin Dose 600 MG; Start 02/20/18 at 21:00 Acetaminophen/ Hydrocodone Bitart ([place] (5/325)) 1 tab BID PRN PO MODERATE PAIN LEVEL 4-6 Last administered on 02/21/18 12:59; Admin Dose 1 TAB; Start 02/21/18 at 08:00 Gabapentin (Neurontin) 100 mg BID PO Last administered on 02/21/18 08:11; Admin Dose 100 MG; Start 02/21/18 at 09:00 Lidocaine (Lidoderm) 1 patch DAILY TD Last administered on 02/21/18 08:12; A dmin Dose 1 PATCH; Start 02/21/18 at 09:00 Ibuprofen (Motrin) 200 mg TID PRN PO MILD PAIN(1-3) OR TEMP>38C Last administered on 02/21/18 12:01; Admin Dose 200 MG; Start 02/21/18 at 11:00 TRISTIAN CONTRERAS Feb 21, 2018 13:36
[2018-02-21] MEDS ORDERED: LORAZEPAM 0.5 MG TAB PO ONE (15:30)
--- NOTE | 2018-02-21 16:08 | PSY ---
Date/Time of Note Date/Time of Note DATE: 02/21/18 TIME: 19:00 Psychiatric Subjective Eval Consent Pt consented to telemedicine: Yes Subjective Evaluation Patient location: inpatient History of present illness HPI: 32 yo male with ho bipolar disorder, on inpatient medicine for back pain and effusion-had back surgery. On medicine,they noticed that li level was 1.5 so they decreased dose. MD spoke with pt. He reports severe depression since surgery, otherwise li works well. Denies si. Denies drug use. Denies psychosis at current time but reports AH a week ago. Past Psych HX: + ho psych admits, no ho suicide PMHx: back pain/surgery Allergies: ambien Meds: li 900mg am/600mg hs, gabapentin 100mg bid, provigil 200mg daily, motrin, baclofen tid, melatonin, last li level yesterday 1.0, clonazepam 2mg hs MSE: shirtless, lying on bed, somewhat immobile, slow speech, decreased prosody of speech, depressed, restricted affect, organized, no delusions or avh or si/hi Imp: 32 yo male with bipolar depression voluntary psych admit for moderate agitation zyprexa 5mg po prn for severe agitation chlorpromazine 25mg im prn li level q 4 days while at this dose tsh level begin seroquel 50mg hs Hospitalization: yes Allergies: Coded Allergies: No Known Allergy (Unverified , 02/11/18) Social History Marital status: single DPA/Conservatorship: No Psychiatric Objective Eval Mental Status Examination: Laboratory Results Laboratory Tests Test 02/20/18 06:34 02/21/18 03:24 02/21/18 03:40 Sodium Level 142 mmol/L 146 mmol/L Potassium Level 3.4 mmol/L 3.4 mmol/L Chloride Level 108 mmol/L 111 mmol/L Carbon Dioxide Level 23 mmol/L 22 mmol/L Anion Gap 11 13 Blood Urea Nitrogen 16 mg/dl 14 mg/dl Creatinine 0.83 mg/dl 0.84 mg/dl Est Glomerular Filtrat > 60 mL/min > 60 mL/min Rate mL/min Glucose Level 86 mg/dl 95 mg/dl Calcium Level 10.1 mg/dl 11.0 mg/dl Phosphorus Level 2.7 mg/dl Magnesium Level 2.2 mg/dl [place] Level 1.0 mmol/L White Blood Count 9.4 10^3/ul Red Blood Count 3.94 10^6/ul Hemoglobin 11.5 g/dl Hematocrit 34.2 % Mean Corpuscular Volume 86.8 fl Mean Corpuscular Hemoglobin 29.2 pg Mean Corpuscular 33.6 g/dl Hemoglobin Concent Red Cell Distribution Width 11.6 % Platelet Count 373 10^3/UL Mean Platelet Volume 9.5 fl Immature Granulocytes % 0.300 % Neutrophils % 64.3 % Lymphocytes % 27.0 % Monocytes % 6.8 % Eosinophils % 1.3 % Basophils % 0.3 % Nucleated Red Blood Cells % 0.0 /100WBC Immature Granulocytes # 0.030 10^3/ul Neutrophils # 6.0 10^3/ul Lymphocytes # 2.5 10^3/ul Monocytes # 0.6 10^3/ul Eosinophils # 0.1 10^3/ul Basophils # 0.0 10^3/ul Nucleated Red Blood Cells # 0.0 10^3/ul Total Bilirubin 0.4 mg/dl Direct Bilirubin 0.00 mg/dl Indirect Bilirubin 0.4 mg/dl Aspartate Amino 31 IU/L Transf (AST/SGOT) Alanine 31 IU/L Aminotransferase (ALT/SGPT) Alkaline Phosphatase 87 IU/L Total Protein 7.5 g/dl Albumin 4.4 g/dl Globulin 3.10 g/dl Albumin/Globulin Ratio 1.41 Urine Color STRAW Urine Clarity CLEAR Urine pH 8.0 Urine Specific [place] 1.004 Urine Ketones NEGATIVE mg/dL Urine Nitrite NEGATIVE mg/dL Urine Bilirubin NEGATIVE mg/dL Urine Urobilinogen NEGATIVE mg/dL Urine Leukocyte Esterase NEGATIVE Joe/ul Urine Hemoglobin NEGATIVE mg/dL Urine Glucose NEGATIVE mg/dL Urine Total Protein NEGATIVE mg/dl Assessment and Plan Recommendation/Plan Multiple antipsychotics: No Discharge Disposition: Psychiatric inpatient Legal Status: Voluntary ANJEL MEDELLIN Feb 21, 2018 16:08
[2018-02-21] MEDS: HYDROCODONE/APAP (5/325) TAB PO PRN ×2 (18:50→23:06)
[2018-02-21 19:50] VITALS: BP 128/77; PULSE 70; RESP 18
[2018-02-21] MEDS: clonAZEPAM 0.5 MG TAB PO PRN (20:14)
[2018-02-21] MEDS: SENNA TAB PO SCH ×2 (20:18→20:54)
[2018-02-21] MEDS: LACTULOSE 30ML CUP PO PRN (20:50)
[2018-02-21] MEDS: BISACODYL 10 MG SUPP PR PRN (21:19)
[2018-02-22] MEDS ORDERED: HYDROCODONE/APAP (5/325) TAB PO ONE
[2018-02-22 04:39] VITALS: BP 119/80; PULSE 95; RESP 19
[2018-02-22] MEDS: HYDROCODONE/APAP (5/325) TAB PO PRN ×4 (04:49→13:30)
[2018-02-22 07:52] VITALS: BP 115/71; PULSE 63; RESP 16
[2018-02-22] MEDS: MODAFINIL 200 MG TAB PO SCH (08:51)
[2018-02-22] MEDS: BACLOFEN 10 MG TAB PO SCH ×2 (08:51→12:22)
[2018-02-22] MEDS: LITHIUM CARBONATE 300 MG CAP PO SCH (08:52)
[2018-02-22] MEDS: DOCUSATE SODIUM 100 MG CAP PO SCH (08:52)
[2018-02-22] MEDS: GABAPENTIN 100 MG CAP PO SCH (08:52)
[2018-02-22] MEDS: LIDOCAINE 5% PATCH TD SCH (08:55)
--- NOTE | 2018-02-22 09:52 | CONS ---
Date/Time of Note Date/Time of Note DATE: 02/22/18 TIME: 09:46 Assessment/Plan Assessment/Plan Assessment/Plan 1.) S/P Back surgery - your continued rehab plans. 2.) Bipolar I disorder- Per psychiatry and [employer]IST. Consider changing klonopin to scheduled at HS. 3.) Abdominal Pain : ? related to constipation, Already on bowel protocol. Check Abd flat plate and LFT/Lipase. 4.) Encouraged PO nutrition but patient does not like the food, wants only "electrolytes". Asked RN to add ensure to meals to supplement protein/caloric intake, Result Diagram: 02/21/184 02/21/184 Consultation Date/Type/Reason Admit Date/Time Feb 13, 2018 at 15:27 Initial Consult Date Type of Consult Internal Medicine 24 HR Interval Summary Free Text/Dictation Patient c/o generalized abdominal discomfort this AM. Feels he needs to have a BM. + nausea, no emesis. Does not like the food. No fever or chills. Exam/Review of Systems Vital Signs Vitals Vital Signs Date Temp Pulse Resp B/P (MAP) Pulse Ox O2 O2 Flow FiO2 Time Delivery Rate 02/22/18 97.8 63 16 115/71 100 Room Air 07:52 (86) Intake and Output 02/21/18 02/21/18 02/22/18 1515:00 23:00 07:00 IntakeIntake Total 940 ml 650 ml OutputOutput Total 900 ml BalanceBalance 940 ml -250 ml Exam Constitutional: alert, oriented, well developed Head: normocephalic, atraumatic Respiratory: clear to auscultation, normal air movement Gastrointestinal: soft, tender (mild diffuse tenderness, normal bowel sounds, no rebound) Medications Medications Current Medications Diphenhydramine HCl (Benadryl) 25 mg Q6H PRN IV ITCHING; Start 02/13/18 at 16:00 Docusate Sodium (Colace) 100 mg BID PO Last administered on 02/22/18at 08:52; Admin Dose 100 MG; Start 02/13/18 at 21:00 Naloxone HCl (Narcan) 0.2 mg Q2M PRN IV OPIATE OVERDOSE; Start 02/13/18 at 16:00 Ondansetron HCl (Zofran Inj) 4 mg Q6H PRN IV NAUSEA AND/OR VOMITING; Start 02/13/18 at 16:00 Phenol (Cepastat Lozenge) 1 lozenge Q2H PRN [place] SORE THROAT; Start 02/13/18 at 16:00 Acetaminophen (Tylenol Tab) 650 mg Q4H PRN PO MILD PAIN(1-3)OR ELEVATED TEMP Last administered on 02/20/18 00:34; Admin Dose 650 MG; Start 02/13/18 at 16:00 Al Hydrox/Mg Hydrox/Simethicone (Mag-Al Plus) 15 ml Q6H PRN PO GASTROINTESTINAL UPSET Last administered on 02/22/18 07:49; Admin Dose 15 ML; Start 02/13/18 at 16:00 Bisacodyl (Dulcolax Supp) 10 mg DAILY PRN [place] CONSTIPATION Last administered on 02/21/18 21:19; Admin Dose 10 MG; Start 02/13/18 at 16:00 Diphenhydramine HCl (Benadryl) 25 mg Q6H PRN PO ITCHING Last administered on 02/20/18 00:34; Admin Dose 25 MG; Start 02/13/18 at 16:00 Modafinil (Provigil) 200 mg DAILY PO Last administered on 02/22/18 08:51; Admin Dose 200 MG; Start 02/14/18 at 09:00 Senna (Senokot) 1 tab HS PO Last administered on 02/21/18 20:54; Admin Dose 1 TAB; Start 02/13/18 at 21:00 Magnesium Hydroxide (Milk Of Mag) 30 ml BID PRN PO CONSTIPATION Last administered on 02/17/18 08:13; Admin Dose 30 ML; Start 02/13/18 at 19:00 Lactulose (Enulose) 20 gm DAILY PRN PO CONSTIPATION Last administered on 02/21/18 20:50; Admin Dose 20 GM; Start 02/13/18 at 19:00 Clonazepam (Klonopin) 2 mg HS PRN PO AGITATION/ANXIETY Last administered on 02/21/18 20:14; Admin Dose 2 MG; Start 02/13/18 at 21:13 Docosanol (Abreva) 1 applic TID TOP Last administered on 02/21/18 20:14; Admin Dose 1 APPLIC; Start 02/17/18 at 13:00; Stop 02/22/18 at 12:59 Miscellaneous Information Patients own medicat... BID@,16 XX ; Start 02/20/18 at 16:00 Baclofen (Lioresal) 10 mg TID PO Last administered on 02/22/18 08:51; Admin Dose 10 MG; Start 02/20/18 at 13:00 Melatonin (Melatonin) 5 mg QHS PRN PO INSOMNIA Last administered on 02/20/18 20:42; Admin Dose 5 MG; Start 02/20/18 at 11:30 [place] Carbonate ([place] Carbonate) 900 mg AM PO Last administered on 02/22/18 08:52; Admin Dose 900 MG; Start 02/21/18 at 09:00 [place] Carbonate ([place] Carbonate) 600 mg HS PO Last administered on 02/21/18 20:15; Admin Dose 600 MG; Start 02/20/18 at 21:00 Gabapentin (Neurontin) 100 mg BID PO Last administered on 02/22/18 08:52; Admi n Dose 100 MG; Start 02/21/18 at 09:00 Lidocaine (Lidoderm) 1 patch DAILY TD Last administered on 02/21/18 08:12; Admin Dose 1 PATCH; Start 02/21/18 at 09:00 Ibuprofen (Motrin) 200 mg TID PRN PO MILD PAIN(1-3) OR TEMP>38C Last administered on 02/21/18 19:46; Admin Dose 200 MG; Start 02/21/18 at 11:00 Acetaminophen/ Hydrocodone Bitart ([place] (5/325)) 1 tab Q4H PRN PO MODERATE PAIN LEVEL 4-6 Last administered on 02/21/18 23:06; Admin Dose 1 TAB; Start 02/21/18 at 18:00 Acetaminophen/ Hydrocodone Bitart ([place] (5/325)) 2 tab Q4H PRN PO SEVERE PAIN LEVEL 7-10 Last administered on 02/22/18 08:54; Admin Dose 2 TAB; Start 02/22/18 at 00:00 TRISTIAN CONTRERAS Feb 22, 2018 09:52
[2018-02-22] MEDS: DOCOSANOL 2 GM CREAM TOP SCH (10:00)
[2018-02-22] MEDS ORDERED: SOD CHLORIDE 0.9% 1,000 ML IV SCH (10:30)
--- NOTE | 2018-02-22 12:53 | PN ---
Date/Time of Note Date/Time of Note DATE: 02/22/18 TIME: 12:45 Subjective Patient with increased agitation last few days, worse yesterday and today. Patient did have telepsych evaluation yesterday, with rec for various psych meds, but patient declined meds except for lithium. He had noted rib pain yesterday, today reports abdominal discomfort, with 9/10 pain. He had BM yesterday. Denies nausea, but reports he does not want the food from here. Objective Vital Signs Date Temp Pulse Resp B/P (MAP) Pulse Ox O2 O2 Flow FiO2 Time Delivery Rate 02/22/18 97.8 63 16 115/71 100 Room Air 07:52 (86) Intake and Output 02/21/18 02/21/18 02/22/18 1414:59 22:59 06:59 IntakeIntake Total 640 ml 950 ml OutputOutput Total 900 ml BalanceBalance 640 ml 50 ml Exam pulm-cta abd- bs; ttp sba ambulation Results/Medications Result Diagram: 02/21/18 0324 02/21/18 0324 Medications Current Medications Diphenhydramine HCl (Benadryl) 25 mg Q6H PRN IV ITCHING; Start 02/13/18 at 16:00 Docusate Sodium (Colace) 100 mg BID PO Last administered on 02/22/18at 08:52; Admin Dose 100 MG; Start 02/13/18 at 21:00 Naloxone HCl (Narcan) 0.2 mg Q2M PRN IV OPIATE OVERDOSE; Start 02/13/18 at 16:00 Ondansetron HCl (Zofran Inj) 4 mg Q6H PRN IV NAUSEA AND/OR VOMITING; Start 02/13/18 at 16:00 Phenol (Cepastat Lozenge) 1 lozenge Q2H PRN MT SORE THROAT; Start 02/13/18 at 16:00 Acetaminophen (Tylenol Tab) 650 mg Q4H PRN PO MILD PAIN(1-3)OR ELEVATED TEMP Last administered on 02/20/18at 00:34; Admin Dose 650 MG; Start 02/13/18 at 16:00 Al Hydrox/Mg Hydrox/Simethicone (Mag-Al Plus) 15 ml Q6H PRN PO GASTROINTESTINAL UPSET Last administered on 02/22/18at 07:49; Admin Dose 15 ML; Start 02/13/18 at 16:00 Bisacodyl (Dulcolax Supp) 10 mg DAILY PRN [place] CONSTIPATION Last administered on 02/21/18 21:19; Admin Dose 10 MG; Start 02/13/18 at 16:00 Diphenhydramine HCl (Benadryl) 25 mg Q6H PRN PO ITCHING Last administered on 00:34; Admin Dose 25 MG; Start 02/13/18 at 16:00 Modafinil (Provigil) 200 mg DAILY PO Last administered on 02/22/18 08:51; Admin Dose 200 MG; Start 02/14/18 at 09:00 Senna (Senokot) 1 tab HS PO Last administered on 02/21/18 20:54; Admin Dose 1 TAB; Start 02/13/18 at 21:00 Magnesium Hydroxide (Milk Of Mag) 30 ml BID PRN PO CONSTIPATION Last administered on 02/17/18 08:13; Admin Dose 30 ML; Start 02/13/18 at 19:00 Lactulose (Enulose) 20 gm DAILY PRN PO CONSTIPATION Last administered on 02/21/18 20:50; Admin Dose 20 GM; Start 02/13/18 at 19:00 Clonazepam (Klonopin) 2 mg HS PRN PO AGITATION/ANXIETY Last administered on 02/21/18 20:14; Admin Dose 2 MG; Start 02/13/18 at 21:13 Docosanol (Abreva) 1 applic TID TOP Last administered on 02/21/18 20:14; Admin Dose 1 APPLIC; Start 02/17/18 at 13:00; Stop 02/22/18 at 12:59 Miscellaneous Information Patients own medicat... BID@,16 XX ; Start 02/20/18 at 16:00 Baclofen (Lioresal) 10 mg TID PO Last administered on 02/22/18 12:22; Admin Dose 10 MG; Start 02/20/18 at 13:00 Melatonin (Melatonin) 5 mg QHS PRN PO INSOMNIA Last administered on 02/20/18 20:42; Admin Dose 5 MG; Start 02/20/18 at 11:30 [place] Carbonate ([place] Carbonate) 900 mg AM PO Last administered on 02/22/18 08:52; Admin Dose 900 MG; Start 02/21/18 at 09:00 [place] Carbonate ([place] Carbonate) 600 mg HS PO Last administered on 02/21/18at 20:15; Admin Dose 600 MG; Start 02/20/18 at 21:00 Gabapentin (Neurontin) 100 mg BID PO Last administered on 02/22/18at 08:52; Admin Dose 100 MG; Start 02/21/18 at 09:00 Lidocaine (Lidoderm) 1 patch DAILY TD Last administered on 02/21/18at 08:12; Admin Dose 1 PATCH; Start 02/21/18 at 09:00 Ibuprofen (Motrin) 200 mg TID PRN PO MILD PAIN(1-3) OR TEMP>38C Last administered on 02/21/18at 19:46; Admin Dose 200 MG; Start 02/21/18 at 11:00 Acetaminophen/ Hydrocodone Bitart ([place] (5/325)) 1 tab Q4H PRN PO MODERATE PAIN LEVEL 4-6 Last administered on 02/21/18at 23:06; Admin Dose 1 TAB; Start 02/21/18 at 18:00 Acetaminophen/ Hydrocodone Bitart ([place] (5/325)) 2 tab Q4H PRN PO SEVERE PAIN LEVEL 7-10 Last administered on 02/22/18at 08:54; Admin Dose 2 TAB; Start 02/22/18 at 00:00 Sodium Chloride 1,000 ml @ 75 mls/hr [id number] IV ; Start 02/22/18 at 10:30 Assessment/Plan Additional Assessment/Plan Rehab- Rehab- Right lumbar radiculopathy and history of diskectomy now status post lumbar fusion on 02/11/2018. Activities as tolerated Acute pain syndrome- patient reports baclofen seems to help. Will discontinue neurontin. Will decrease motrin, which may be contributing to abd pain Bipolar disorder- patient much more agitated over the course of the last few days. He now reports his abdominal pain is contributing to his psychiatric concerns. Patient is agreeable to continue lithium, but not to the other medications that [facility]. FEN- encourage PO intake, patient refuses IV Constipation- continue bowel program Dispo- patient has made functional gains on rehab, however now the abdominal concerns and psychiatric concerns are a barrier to rehab participation. Patient agreeable to transfer to acute hospital for further care and workup. MALACHI MEZA MD Feb 22, 2018 12:53
--- NOTE | 2018-02-23 10:08 | DS ---
Date/Time of Note Date/Time of Note DATE: 02/23/18 TIME: 10:02 Discharge Summary Admission/Discharge Info Admit Date/Time Feb 13, 2018 at 15:27 Discharge Date/Time Feb 22, 2018 at 13:42 Discharge Diagnosis 1. Sever abdominal pain 2. Right lumbar radiculopathy and history of diskectomy now status post lumbar fusion on 02/11/2018. 3. Bipolar disorder with worsening agitation over last 3 days 4. Acute pain syndrome. 5. Constipation, results with bowel program 4. Improvements in self-care and mobility. Patient Condition: Fair Hospital Course The patient was admitted for comprehensive interdisciplinary rehabilitation and made steady functional gains from a Mod level to a Supervised level for self care tasks and mobility including ambulating over 150 feet with the use of a FWW. Despite steady functional gains, patient noted to have worsening agitation over last few days of rehabilitation unit stay. Patient received applied psychology professor eval and followup and also telepsych evaluation, with rec for various psych meds including zyprexa 5mg po prn for moderate agitation; chlorpromazine 25mg im prn for sever agitation; and seroquel 50 mg q hs. Patient refused psych medication adjustments. Over last few days of ARU he had noted various generalized pain other than back, including rib, and the following day abdomen.rib pain , reporting 9/10 pain. He had BM yesterday. Denies nausea, but reports he does not want the food from here. Given the significant increase in agitation in addition to low grad temperature and abdominal complaints, patient transferred to acute setting for further care and work up. Home Meds Reported Medications Modafinil* (Modafinil*) 200 Mg Tablet, 200 MG PO QAM, TAB 02/11/18 Clonazepam* (Clonazepam*) 2 Mg Tablet, 2 MG PO QHS PRN for SLEEP, TAB 02/11/18 Carisoprodol* (Carisoprodol*) 350 Mg Tablet, 350 MG PO QHS PRN for MUSCLE SPASMS, TAB 02/11/18 [place] Carbonate* ([place]*) 300 Mg Cap, 900 MG PO BID, CAP 02/11/18 Primary Care Provider Not On Staff Doctor MALACHI MEZA MD Feb 23, 2018 10:08
== END 2018-02-22 13:42 | disposition short-term general hospital (02) | DRG 560 ==
LOC: VRC 15:27 → 5EC 02-22 13:25 → VRC 02-22 13:42
PROVIDERS: ADMIT Physical Medicine & Rehabilitation; ATTEND Specialist
PROC: F07Z5ZZ Bed Mobility Treatment (ICD-10-PCS; principal; 2018-02-14)
PROC: F07Z8ZZ Transfer Training Treatment (ICD-10-PCS; 2018-02-14)
PROC: F07Z9ZZ Gait Training/Functional Ambulation Treatment (ICD-10-PCS; 2018-02-14)
PROC: F08Z2ZZ Grooming/Personal Hygiene Treatment (ICD-10-PCS; 2018-02-14)
PROC: F08Z1ZZ Dressing Techniques Treatment (ICD-10-PCS; 2018-02-14)
PROC: F08Z0ZZ Bathing/Showering Techniques Treatment (ICD-10-PCS; 2018-02-14)
DX: Z47.89 Encounter for other orthopedic aftercare (principal); F31.10 Bipolar disorder, current episode manic without psychotic features, unspecified; K59.00 Constipation, unspecified; E83.52 Hypercalcemia; R07.81 Pleurodynia; R10.9 Unspecified abdominal pain; R45.1 Restlessness and agitation; Z98.1 Arthrodesis status
CPT/HCPCS: 71045; 80048; 80053; 80178; 81003; 82306; 83735; 83970; 84100; 84300; 84443; 85025; 87081; 87086; 93971; 97110; 97112; 97116; 97163; 97167; 97530; 97535; J7030

== ENCOUNTER 2018-02-22 14:25 | Inpatient (IN) | payer BC ==
[~2018-02-22] VITALS: Ht 195.6 cm; Wt 82.0 kg
[2018-02-22 13:30] VITALS: BP 134/81; RESP 19
[2018-02-22 16:10] VITALS: Ht 195.6 cm; Wt 82.0 kg
[2018-02-22] MEDS ORDERED: CARISOPRODOL 350 MG TAB PO PRN (16:30)
[2018-02-22] MEDS ORDERED: clonAZEPAM 0.5 MG TAB PO ONE (16:30)
[2018-02-22] MEDS ORDERED: NACL 0.9% 3 ML SYG IV SCH (17:00)
[2018-02-22] MEDS ORDERED: ACETAMINOPHEN 325 MG TAB PO PRN (17:00)
[2018-02-22] MEDS ORDERED: MAGNESIUM HYDROXIDE 30ML CUP PO PRN (17:00)
[2018-02-22] MEDS ORDERED: BISACODYL 10 MG SUPP PR PRN (17:00)
[2018-02-22] MEDS ORDERED: DOCUSATE SODIUM 100 MG CAP PO PRN (17:00)
[2018-02-22] MEDS: HYDROCODONE/APAP (10/325) TAB PO PRN ×2 (17:03→22:52)
[2018-02-22 19:41] VITALS: BP 127/82; PULSE 110; RESP 18
[2018-02-22] MEDS: LITHIUM CARBONATE 300 MG CAP PO SCH (21:06)
[2018-02-22] MEDS: clonAZEPAM 0.5 MG TAB PO SCH (21:07)
[2018-02-23 01:45] VITALS: BP 139/82; PULSE 94; RESP 18
[2018-02-23] MEDS: HYDROCODONE/APAP (10/325) TAB PO PRN ×3 (01:50→16:25)
[2018-02-23] MEDS ORDERED: ENOXAPARIN 40 MG/0.4 ML SYG SC SCH (09:00)
[2018-02-23] MEDS: LITHIUM CARBONATE 300 MG CAP PO SCH ×2 (09:27→21:29)
[2018-02-23] MEDS: clonAZEPAM 0.5 MG TAB PO SCH (09:28)
[2018-02-23] MEDS: MODAFINIL 200 MG TAB PO SCH (10:38)
--- NOTE | 2018-02-23 11:46 | PREOPHP ---
DATE OF ADMISSION: 02/13/2018 REASON FOR ADMISSION: Altered mental state with mood instability. HISTORY OF PRESENT ILLNESS: This 32-year-old man was transferred yesterday from the acute rehab unit in this hospital. The patient apparently developed some agitation several days prior to his transfer to this behavioral unit in the hospital. The patient had seen the industrial organizational psychologist and tele psych evaluation with various psych meds including for moderate agitation and for severe agitation. The patient was refusing some of his psych medication except for lithium. He was also complaining of abdominal pain, rib pain. The patient became more and more difficult to manage, so he was transferred yesterday to the acute rehab unit on here at [facility]. The patient was seen by me today and he is awake and alert. He is calm and has no new complaints. PAST MEDICAL HISTORY: Remarkable for lumbar spine surgery for a revision of the right L5-S1 decompression with extraforaminal decompression of right L5 nerve root. Pedicle screw placement at L5 and S1 bilaterally and a transforaminal lumbar interbody fusion from L5-S1. The patient denies any back pain at this time. Other past medical history includes: 1. Bipolar disorder for which he takes lithium and Provigil. 2. History of anxiety/depression. The patient does have a long history of mental illness with bipolar disorder. The patient has a family of mental illness, grandmother was diagnosed with bipolar disorder and he has a brother with bipolar disorder. ALLERGIES: HE HAS NO KNOWN DRUG ALLERGIES. SOCIAL HISTORY: He has a history of substance abuse, alcohol and history of marijuana use. He is single. PHYSICAL EXAMINATION: GENERAL: At this time reveals a well-developed man in no apparent distress. VITAL SIGNS: Temperature is 98.3, pulse of 94, respirations 18, blood pressure 139/82, O2 saturation of 97% on room air. HEENT: Head normocephalic. Eyes: Extraocular muscles intact. NOSE AND MOUTH: Normal. NECK: Supple. No neck vein distention. LUNGS: Clear to auscultation. HEART: Regular rhythm. No murmurs, gallops or rubs. ABDOMEN: Soft, nontender, no masses or megaly. EXTREMITIES: No peripheral edema. NEUROLOGIC: Grossly intact. IMPRESSION: 1. Bipolar disorder with recent agitation and acting out. He was transferred to the behavioral psychiatric unit at [facility]. He seems to be doing better now. He is back on his regular medications. 2. Status post lumbar spine surgery redo recently. He is not complaining of pain at this time. PLAN: 1. Resume some routine medications. 2. Check labs in the morning. 3. Continue physical therapy the patient has ordered. Dictated By: NIKHIL NEGRETE MD ND/NTS Conf#: [id number] DID#: [id number] CC: MALACHI MEZA MD; SHIKHA BERGERON NP; CAMPBELL CHI MD;*EndCC* MTDD
[2018-02-23] MEDS: clonAZEPAM 0.5 MG TAB PO PRN ×2 (15:23→21:29)
[2018-02-23 20:09] VITALS: BP 117/74; PULSE 102; RESP 20
[2018-02-24 03:04] VITALS: PULSE 107; RESP 20
[2018-02-24] MEDS: clonAZEPAM 0.5 MG TAB PO PRN ×2 (04:52→11:33)
[2018-02-24] MEDS: HYDROCODONE/APAP (10/325) TAB PO PRN ×2 (04:59→11:34)
[2018-02-24] MEDS: LITHIUM CARBONATE 300 MG CAP PO SCH (10:08)
[2018-02-24] MEDS: MODAFINIL 200 MG TAB PO SCH (10:08)
--- NOTE | 2018-02-24 11:49 | PN ---
Date/Time of Note Date/Time of Note DATE: 02/24/18 TIME: 11:44 Assessment/Plan VTE Prophylaxis Risk score (from Ns)>0 risk: 2 [place] [facility] [place] contraindicated: low risk/ambulating Pharmacological prophylaxis: NA/contraindicated Pharm contraindication: low risk/ambulating Assessment/Plan Hospital Course 1. Bipolar disorder with psychotic behavior . He will need to be evaluated for transfer to a psychiatric facility . He is medically cleared for transfer to a psychiatric facility . Result Diagram: 02/23/1881602/23/18816 Subjective 24 Hr Interval Summary Free Text/Dictation This patient has been been agitated and the nursing staff is having trouble controlling him . Exam/Review of Systems Vital Signs Vitals Vital Signs Date Temp Pulse Resp B/P (MAP) Pulse Ox O2 O2 Flow FiO2 Time Delivery Rate 02/24/18 107 20 97 Room Air 03:04 02/23/18 98.2 117/74 20:09 (88) Intake and Output 02/23/18 02/23/18 02/24/18 1515:00 23:00 07:00 IntakeIntake Total 340 ml 120 ml OutputOutput Total 1050 ml BalanceBalance -710 ml 120 ml Medications Medications Current Medications Acetaminophen/ Hydrocodone Bitart ([place] (10/325)) 2 tab Q6H PRN PO MODERATE PAIN LEVEL 4-6 Last administered on 02/24/18at 11:34; Admin Dose 2 TAB; Start 02/22/18 at 16:30 Carisoprodol (Soma) 350 mg QHS PRN PO MUSCLE SPASMS Last administered on 02/22/18at 21:59; Admin Dose 350 MG; Start 02/22/18 at 16:30 [place] Carbonate ([place] Carbonate) 900 mg BID PO Last administered on 02/24/18at 10:08; Admin Dose 900 MG; Start 02/22/18 at 21:00 Modafinil (Provigil) 200 mg QAM PO Last administered on 02/24/18at 10:08; Admin Dose 200 MG; Start 02/23/18 at 09:00 IV Flush (NS 3 ml) 3 ml PER PROTOCOL IV ; Start 02/22/18 at 17:00 Acetaminophen (Tylenol Tab) 650 mg Q6H PRN PO PAIN LEVEL 1-3 OR FEVER; Start 02/22/18 at 17:00 Docusate Sodium (Colace) 100 mg Q12H PRN PO CONSTIPATION; Start 02/22/18 at 1 7:00 Magnesium Hydroxide (Milk Of Mag) 30 ml DAILY PRN PO CONSTIPATION; Start 02/22/18 at 17:00 Bisacodyl (Dulcolax Supp) 10 mg DAILY PRN [place] CONSTIPATION; Start 02/22/18 at 17:00 Clonazepam (Klonopin) 2 mg Q6H PRN PO ANXIETY Last administered on 02/24/18at 11:33; Admin Dose 2 MG; Start 02/23/18 at 14:00 NIKHIL NEGRETE MD Feb 24, 2018 11:49
[2018-02-24] MEDS ORDERED: HALOPERIDOL 5 MG INJ IM PRN (13:30)
--- NOTE | 2018-02-24 13:30 | PN ---
Date/Time of Note Date/Time of Note DATE: 02/24/18 TIME: 13:26 Assessment/Plan VTE Prophylaxis Risk score (from Ns)>0 risk: 2 SCD applied (from Ns): No SCD contraindicated: other Pharmacological prophylaxis: other Assessment/Plan Assessment/Plan 1. Psychiatric disorder (hx bipolar disorder) now decompensated, will add Haldol for now until can be seen by pain management/palliative care. 2. Transfer to psychiatric care in being investigated. Result Diagram: 02/23/1881602/23/18816 Subjective 24 Hr Interval Summary Subjective hx not possible: other (agitated and combative) Exam/Review of Systems Vital Signs Vitals Vital Signs Date Temp Pulse Resp B/P (MAP) Pulse Ox O2 O2 Flow FiO2 Time Delivery Rate 02/24/18 107 20 97 Room Air 03:04 02/23/18 98.2 117/74 20:09 (88) Intake and Output 02/23/18 02/23/18 02/24/18 1515:00 23:00 07:00 IntakeIntake Total 340 ml 120 ml OutputOutput Total 1050 ml BalanceBalance -710 ml 120 ml Exam Neurological: focal weakness Medications Medications Current Medications Acetaminophen/ Hydrocodone Bitart ([place] (10/325)) 2 tab Q6H PRN PO MODERATE PAIN LEVEL 4-6 Last administered on 02/24/18at 11:34; Admin Dose 2 TAB; Start 02/22/18 at 16:30 Carisoprodol (Soma) 350 mg QHS PRN PO MUSCLE SPASMS Last administered on 02/22/18at 21:59; Admin Dose 350 MG; Start 02/22/18 at 16:30 [place] Carbonate ([place] Carbonate) 900 mg BID PO Last administered on 02/24/18at 10:08; Admin Dose 900 MG; Start 02/22/18 at 21:00 Modafinil (Provigil) 200 mg QAM PO Last administered on 02/24/18at 10:08; Admin Dose 200 MG; Start 02/23/18 at 09:00 IV Flush (NS 3 ml) 3 ml PER PROTOCOL IV ; Start 02/22/18 at 17:00 Acetaminophen (Tylenol Tab) 650 mg Q6H PRN PO PAIN LEVEL 1-3 OR FEVER; Start 02/22/18 at 17:00 Docusate Sodium (Colace) 100 mg Q12H PRN PO CONSTIPATION; Start 02/22/18 at 17:00 Magnesium Hydroxide (Milk Of Mag) 30 ml DAILY PRN PO CONSTIPATION; Start 02/22/18 at 17:00 Bisacodyl (Dulcolax Supp) 10 mg DAILY PRN [place] CONSTIPATION; Start 02/22/18 at 17:00 Clonazepam (Klonopin) 2 mg Q6H PRN PO ANXIETY Last administered on 02/24/18at 11 :33; Admin Dose 2 MG; Start 02/23/18 at 14:00 Haloperidol (Haldol) 2 mg Q6 PRN IM AGITATION/ANXIETY; Start 02/24/18 at 13:30; Status UNV BRISSA CHANCE MD Feb 24, 2018 13:30
--- NOTE | 2018-02-24 17:49 | CONS ---
Date/Time of Note Date/Time of Note DATE: 02/24/18 TIME: 17:46 Consult Date/Type/Reason Admit Date Feb 22, 2018 at 14:25 Type of Consult Psych Subjective Patient is a 32-year-old male who is currently very irritable delusional very suspicious and guarded . On a [id number] evaluation patient is irritable, states he would rather drink blood patient repeatedly asked interview the interviewer believed entrust he has poor impulse control disrobing and acting inappropriately laughing to himself responding to internal stimuli. Patient also exhibited some tremors and lithium level was done and it was 1.2 so no lithium toxicity at this point. Crisis team clinician from [facility] patient on a [id number] hold. He will transfer out shortly Objective Patient Appearance: Inappropriate dress Voice Loudness: Severely Loud Mood and Affect Description: Agitated, Anxious Mood or Affect: Uncooperative Speech Pattern: Clear Hallucination Type: Auditory Delusion Description: Present RUBIO TRIVEDI NP Feb 24, 2018 17:49
--- NOTE | 2018-02-25 07:38 | CONS ---
Date/Time of Note Date/Time of Note DATE: 02/25/18 TIME: 07:34 Assessment/Plan Assessment/Plan Assessment/Plan 32-year-old male admitted to the rehabilitation unit to [facility] on February 13, 2018. Patient had recently undergone an orthopedic surgical procedure at postoperatively refused to take his anti-present anti- psychotic medications and became agitation, refused to cooperate with staff so much so security was contacted. Patient undergone a revision at right L5 S1 decompression with extrapyramidal decompression of the right L5 nerve root, pedicle screw placement at L5 and S1 bilaterally and transforaminal lumbar interbody fusion L5 S1. All information is taken from patient's medical records as he is refusing to speak with me, enter his door or engage him in any manner. It is known as patient has a history of bipolar disorder with agitation. According to medical records he was taking lithium 1800 daily. There are no other antipsychotic anti-depressed medications listed as part of patient's medical records. According to medical records patient with history of schizophrenia, out of co ntrol at this time requiring security to assist with patients care and protecting staff. Recent lumbar sacral surgical decompression surgery patient refusing to speak with me I have spoken with social work service. Patient is to be transferred to in acute psychiatric facility this evening, psychiatric evaluation team are on route to [facility] at this time. In the meantime suggest as the excellent nursing staff are already doing keeping patient is calm as possible in a comfortable quiet room close to nursing station. Result Diagram: 02/24/18 1414 02/24/18 1414 Results 24hrs Laboratory Tests Test 02/24/18 14:14 02/24/18 15:37 White Blood Count 13.8 #H Red Blood Count 4.38 L Hemoglobin 12.7 L Hematocrit 37.9 L Mean Corpuscular Volume 86.5 Mean Corpuscular Hemoglobin 29.0 Mean Corpuscular Hemoglobin Concent 33.5 Red Cell Distribution Width 11.8 Platelet Count 430 H Mean Platelet Volume 9.1 Immature Granulocytes % 0.300 Neutrophils % 77.0 Lymphocytes % 16.4 Monocytes % 4.6 Eosinophils % 1.4 Basophils % 0.3 Nucleated Red Blood Cells % 0.0 Immature Granulocytes # 0.040 H Neutrophils # 10.6 H Lymphocytes # 2.3 Monocytes # 0.6 Eosinophils # 0.2 Basophils # 0.0 Nucleated Red Blood Cells # 0.0 Sodium Level 139 Potassium Level 4.0 Chloride Level 106 Carbon Dioxide Level 20 L Anion Gap 13 Blood Urea Nitrogen 11 Creatinine 0.88 Est Glomerular Filtrat Rate mL/min > 60 Glucose Level 79 Calcium Level 10.9 H Total Bilirubin 0.3 Direct Bilirubin 0.00 Indirect Bilirubin 0.3 Aspartate Amino Transf (AST/SGOT) 24 Alanine Aminotransferase (ALT/SGPT) 21 Alkaline Phosphatase 110 Total Protein 7.7 Albumin 4.8 Globulin 2.90 Albumin/Globulin Ratio 1.65 [place] Level 1.3 Consultation Date/Type/Reason Admit Date/Time Feb 22, 2018 at 14:25 Past Medical History Allergies: Coded Allergies: No Known Allergy (Unverified , 02/11/18) Social History Smoking Status: Never smoker Exam/Review of Systems Vital Signs Vitals Vital Signs Date Temp Pulse Resp B/P (MAP) Pulse Ox O2 O2 Flow FiO2 Time Delivery Rate 02/24/18 107 20 97 Room Air 03:04 02/23/18 98.2 117/74 20:09 (88) VALENTE QUIROGA Feb 25, 2018 07:38
--- NOTE | 2018-03-02 09:06 | DS ---
DATE OF ADMISSION: 02/22/2018 DATE OF DISCHARGE: 02/24/2018 This is a 32-year-old male transferred from the acute rehab facility for severe agitation with known bipolar disorder. PERTINENT EXAMINATION ON ADMISSION: VITAL SIGNS: Normal. CARDIOPULMONARY: Unrevealing. NEUROLOGIC: Revealed no lateralizing motor weakness. LABORATORY AND DIAGNOSTIC STUDIES: Hematocrit was 36.4 on the 14th and 37.9 on the 15th. White coun t 11,000 on the 14th and 13,800 on the 15th. Differential was unrevealing. [place] level is 1.3. C hemistries were normal except for calcium of 10.6 on the 14th and 10.9 on the 15th. Liver tests were normal. Imaging studies were not performed. HOSPITAL COURSE: The patient was markedly agitated, confused and combative. He required parenteral Haldol to help control the latter. He was seen by pain management who because of his inability to co operate could not provide any additional intervention. With the help of discharge planners and case management, he was ultimately transferred to a [facility] extended care facility. MEDICATIONS ON DISCHARGE: 1. Soma 350 mg at bedtime. 2. Klonopin 2 mg at bedtime. 3. [place] 900 mg b.i.d. 4. Modafinil 200 mg each morning. Dictated By: BRISSA DIAMOND/CHRIS Conf#: [id number] DID#: [id number]
--- NOTE | 2018-03-03 08:09 | QN ---
Documentation Comment Add to dc summary, the pt was unstable psychiatrically at the time BRISSA Mcgowan MD Mar 03, 2018 08:09
== END 2018-02-24 19:00 | DRG 885 ==
LOC: 5EC 14:25
PROVIDERS: ADMIT Specialist; ATTEND Specialist
DX: F31.5 Bipolar disorder, current episode depressed, severe, with psychotic features (principal); Z98.1 Arthrodesis status
CPT/HCPCS: 80053; 80178; 85025; 97161; J1630; J1650